=== PATIENT | female | born 1940 | race Caucasian/White ===

== ENCOUNTER 2016-06-26 06:38 | Day surgery (SDC) | payer MEDICARE, MEDICAID ==
[2016-06-26] MEDS ORDERED: Lactated Ringers 1,000 ML IV SCH (07:30)
[2016-06-26] MEDS ORDERED: Midazolam 1 MG/ML 2 ML SDV IV ONE (08:00)
[2016-06-26] MEDS ORDERED: Glucagon,Human Recombinant 1 MG Vial IV ONE (08:00)
[2016-06-26] MEDS ORDERED: Propofol 200 MG/20 ML SDV IV ONE (08:00)
[2016-06-26] MEDS ORDERED: Lidocaine 2% 100 MG/5 ML Syringe IVPUSH ONE (08:00)
--- NOTE | 2016-06-26 08:38 | PCM.OPNOTE ---
- General Post-Op/Procedure Note Date of Surgery/Procedure: 06/26/16 Operative Procedure(s): Colonoscopy Findings: Diverticulosis Pre Op Diagnosis: Hx Polyps Post-Op Diagnosis: Same Anesthesia Technique: MAC Primary Surgeon: Tim Davila Complications: None Condition: Good
--- NOTE | 2016-06-26 08:41 | PCM.HP ---
H&P History of Present Illness - General Date of Service: 06/26/16 (Seen prior to procedure) Admit Problem/Dx: Admission Diagnosis/Problem Admission Diagnosis/Problem Colonoscopy Source of Information: Patient, Old records History Limitations: Reports: No limitations - Related Data Allergies/Adverse Reactions: Allergies Allergy/AdvReac Type Severity Reaction Status Date / Time meperidine [From Demerol] AdvReac NAUSEA,VOMI Verified 06/26/16 07:31 TING,DIARRH EA CONTRAST DYE Allergy Intermediate Hives Uncoded 06/26/16 07:27 Home Medications: Home Meds Diltiazem [Cardizem] 90 mg PO BID 06/12/13 [History] Lisinopril/Hydrochlorothiazide [Zestoretic 20-12.5 mg Tablet] 10 - 12.5 mg PO BID 06/12/13 [History] Multivitamin [Multi-Vitamin Daily] 1 each PO DAILY 06/12/13 [History] Simvastatin [Zocor] 30 mg PO DAILY 06/12/13 [History] Tacrolimus [Prograf] 0.5 mg PO BID 06/12/13 [History] predniSONE 5 mg PO DAILY 06/12/13 [History] Mycophenolate Mofetil [Cellcept] 1,000 mg PO BID 06/15/13 [History] Acetaminophen/Diphenhydramine [Tylenol Pm Ex-Strength Caplet] 25 - 500 mg PO BEDTIME 06/25/16 [History] Aspirin [Lo-Dose Aspirin EC] 81 mg PO BID 06/25/16 [History] Cholecalciferol (Vitamin D3) [Vitamin D3] 2,000 unit PO DAILY 06/25/16 [History] Fenofibrate Nanocrystallized [Fenofibrate] 145 mg PO DAILY 06/25/16 [History] Sulfamethoxazole/Trimethoprim [Septra] 80 - 400 mg PO DAILY 06/25/16 [History] Past Medical History Cardiovascular History: Reports: Afib Gastrointestinal History: Reports: Chronic constipation, Colon polyp Genitourinary History: Reports: Renal disease, Other (see below) Other Genitourinary History: BILAT KIDNEY TRANSPLANT Musculoskeletal History: Reports: Osteoarthritis 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 Exam - Exam Exam: See Below - Vital Signs Vital Signs: Last Vital Signs Temp 97.8 F 06/26/16 07:42 Pulse 64 06/26/16 07:42 Resp 14 06/26/16 07:42 BP 132/64 06/26/16 07:42 Pulse Ox 96 06/26/16 07:42 Weight: 87.09 kg - Exam General: alert, oriented Lungs: Clear to auscultation, Normal respiratory effort Cardiovascular: regular rate, regular rhythm Abdomen: soft. No: tenderness, mass *Q Meaningful Use (ADM) - VTE *Q VTE Criteria *Q: - Stroke *Q Stroke Criteria *Q: - AMI *Q AMI Criteria *Q: Problem List Initiated/Reviewed/Updated: Yes Orders Last 24hrs: Active Orders 24 hr Category Date Time Status Patient Status [ADT] Routine ADT 06/26/16 06:45 Ordered Patient to Empty Bladder [RC] ASDIRECTED Care 06/26/16 07:00 Active Verify Patient Consent Obtain [RC] ASDIRECTED Care 06/26/16 07:30 Active Nothing Per Oral Diet [DIET] Diet 06/25/16 Dinner Ordered Lactated Ringers [Ringers, Lactated] 1,000 ml Med 06/26/16 07:30 Active IV ASDIRECTED Peripheral IV Insertion Adult [OM.PC] Routine Oth 06/26/16 07:30 Ordered Resuscitation Status Routine Resus Stat 06/25/16 10:23 Ordered Medication Orders Lactated Ringer's (Ringers, Lactated) 1,000 mls @ 125 mls/hr IV ASDIRECTED PEGGY Last Admin: 06/26/16 07:31 Dose: 125 mls/hr Assessment/Plan Comment:: A) Hx Colon Polyps P) OK toproceed with colonoscopy; risks and complications reviewed, consent obtained
[2016-06-26 11:07] VITALS: BP 123/54
--- NOTE | 2016-06-26 15:17 | OR ---
DATE OF OPERATION: 06/26/2016 SURGEON: Tim Davila MD PREOPERATIVE DIAGNOSIS: History of colon polyps. POSTOPERATIVE DIAGNOSIS: Normal colonoscopy. PROCEDURE PERFORMED: Colonoscopy. ANESTHESIA: IV sedation. PROCEDURE IN DETAIL: The patient was brought to the procedure room, where she was placed on her left side and IV sedation administered. Digital rectal exam was performed which was normal. The colonoscope was inserted and advanced with moderate difficulty through a tortuous colon with multiple diverticula throughout. They were most numerous in the sigmoid colon region. I was able to reach the cecum, which was verified by visualizing the appendiceal lumen and ileocecal valve. The prep was good and surfaces were well visualized. Upon withdrawing the scope, the ascending transverse and descending colon had scattered diverticula. The sigmoid colon had multiple diverticula. Rectum was normal and retroflexion was normal. Air was removed, and the scope withdrawn. The patient tolerated the procedure well and returned to recovery in stable condition. Recommend routine colon screening in five years. /[id number] JACOB/RENALDO
== END 2016-06-26 09:55 | disposition home or self-care (01) ==
LOC: FB.SDS 06:38
PROVIDERS: ATTEND Surgery
DX: Z12.11 Encounter for screening for malignant neoplasm of colon (principal); K57.30 Diverticulosis of large intestine without perforation or abscess without bleeding; Q43.8 Other specified congenital malformations of intestine; Z88.8 Allergy status to other drugs, medicaments and biological substances; Z91.041 Radiographic dye allergy status; Z79.899 Other long term (current) drug therapy; Z79.82 Long term (current) use of aspirin; Z94.0 Kidney transplant status; N28.9 Disorder of kidney and ureter, unspecified; Z87.891 Personal history of nicotine dependence
CPT/HCPCS: 00902; 82962; G0105; J1610; J2250; J2704; J7120

== ENCOUNTER 2017-12-09 01:29 | Inpatient (IN) | payer MEDICARE, MEDICAID ==
--- NOTE | 2017-12-09 01:47 | EDM.PDOC ---
ED HPI GENERAL MEDICAL PROBLEM - General Chief Complaint: Lower Extremity Injury/Pain Stated Complaint: RT HIP PAIN Time Seen by Provider: 12/09/17 01:46 Source of Information: Reports: Patient History Limitations: Reports: No Limitations - History of Present Illness INITIAL COMMENTS - FREE TEXT/NARRATIVE: Josemanuel @2300 12/08/17, complains of right hip pain, unable to bear weight on RLE. Onset: Today Onset Date: 12/08/17 Onset Time: 23:00 Location: Reports: Lower Extremity, Right Quality: Reports: Dull Severity: Moderate - Related Data Allergies Allergy/AdvReac Type Severity Reaction Status Date / Time meperidine [From Demerol] AdvReac NAUSEA,VOMI Verified 12/09/17 02:10 TING,DIARRH EA CONTRAST DYE Allergy Intermediate Hives Uncoded 06/26/16 07:27 Home Meds: Home Meds Diltiazem [Cardizem] 90 mg PO BID 06/12/13 [History] Lisinopril/Hydrochlorothiazide [Zestoretic 20-12.5 mg Tablet] 10 - 12.5 mg PO BID 06/12/13 [History] Multivitamin [Multi-Vitamin Daily] 1 each PO DAILY 06/12/13 [History] Tacrolimus [Prograf] 0.5 mg PO BID 06/12/13 [History] predniSONE 5 mg PO DAILY 06/12/13 [History] Mycophenolate Mofetil [Cellcept] 1,000 mg PO BID 06/15/13 [History] Aspirin [Lo-Dose Aspirin EC] 81 mg PO BID 06/25/16 [History] Cholecalciferol (Vitamin D3) [Vitamin D3] 2,000 unit PO DAILY 06/25/16 [History] Fenofibrate Nanocrystallized [Fenofibrate] 145 mg PO DAILY 06/25/16 [History] Sulfamethoxazole/Trimethoprim [Septra] 80 - 400 mg PO DAILY 06/25/16 [History] Past Medical History Cardiovascular History: Reports: Afib (paroxysmal), Hypertension. Denies: CAD, [place] Gastrointestinal History: Reports: Chronic Constipation, Colon Polyp Genitourinary History: Reports: Renal Disease (Polycystic Kidney Disease), Other (See Below) Other Genitourinary History: BILAT KIDNEY TRANSPLANT Musculoskeletal History: Reports: Osteoarthritis Immunologic History: Reports: Solid Organ Transplant Oncologic (Cancer) History: Reports: Other (See Below) Other Oncologic History: SKIN - Past Surgical History Other Female Surgeries/Procedures: KIDNEY TRANSPLANT 17 YRS AGO Musculoskeletal Surgical History: Reports: Other (See Below) (left hip fracture ORIF) Social & Family History - Tobacco Use Smoking Status *Q: Former Smoker - Caffeine Use Caffeine Use: Reports: None - Alcohol Use Alcohol Use History: Yes Alcohol Use Frequency: Rarely Review of Systems - Review of Systems Review Of Systems: ROS reveals no pertinent complaints other than HPI. ED EXAM, GENERAL - Physical Exam Exam: See Below Exam Limited By: No Limitations General Appearance: Alert, WD/WN, No Apparent Distress Ears: Normal External Exam Nose: Normal Inspection Throat/Mouth: No Airway Compromise Head: Atraumatic, Normocephalic Neck: Full Range of Motion Respiratory/Chest: No Respiratory Distress, Lungs Clear, Normal Breath Sounds Cardiovascular: Regular Rate, Rhythm, No Murmur Extremities: Other (Moderate right hip tenderness, no rotation or shortening, not able to bear weight on RLE) Neurological: Alert, No Motor/Sensory Deficits Psychiatric: Normal Affect, Normal Mood Skin Exam: Warm, Dry, Intact Course - Orders/Labs/Meds Orders: Active Orders 24 hr Category Date Time Status EKG Documentation Completion [RC] ASDIRECTED Care 12/09/17 02:48 Active Gupta Catheter Insertion [Insert Urinary Catheter] [OM. Care 12/09/17 03:00 Ordered PC] Q24H Urinary Catheter Assessment [RC] QSHIFT Care 12/09/17 02:48 Active Hip Min 2V or 3V w Pelvis Rt [CR] Stat Exams 12/09/17 01:30 Taken Pelvis wo Cont [CT] Stat Exams 12/09/17 02:05 Taken Sodium Chloride 0.9% [Saline Flush] Med 12/09/17 01:32 Active 10 ml FLUSH ASDIRECTED PRN Saline Lock Insert [OM.PC] Routine Oth 12/09/17 01:32 Ordered EKG 12 Lead [EK] Stat Ther 12/09/17 02:47 Ordered Medication Orders Sodium Chloride (Saline Flush) 10 ml FLUSH ASDIRECTED PRN PRN Reason: Keep Vein Open Last Admin: 12/09/17 02:38 Dose: 10 ml Labs: Laboratory Tests 12/09/17 12/09/17 12/09/17 Range/Units 02:30 02:30 02:30 WBC 9.7 (4.5-12.0) X10-3/uL RBC 3.82 (3.23-5.20) x10(6)uL Hgb 11.6 (11.5-15.5) g/dL Hct 35.1 (30.0-51.3) % MCV 91.9 (80-96) fL MCH 30.3 (27.7-33.6) pg MCHC 33.0 (32.2-35.4) g/dL RDW 13.8 (11.5-15.5) % Plt Count 152 (125-369) X10(3)uL MPV 9.4 (7.4-10.4) fL Add Manual Diff Yes Neutrophils % (Manual) 88 H (46-82) % Lymphocytes % (Manual) 7 L (13-37) % Monocytes % (Manual) 5 (4-12) % PT 11.4 H (8.7-11.1) INR 1.18 H (0.89-1.13) Sodium 141 (135-145) mmol/L Potassium 4.0 (3.5-5.3) mmol/L Chloride 104 (100-110) mmol/L Carbon Dioxide 29 (21-32) mmol/L BUN 43 H (7-18) mg/dL Creatinine 1.7 H (0.55-1.02) mg/dL Est Cr Clr Drug Dosing TNP Estimated GFR (MDRD) 29 L (>60) BUN/Creatinine Ratio 25.3 H (9-20) Glucose 117 H (80-116) mg/dL Calcium 9.6 (8.6-10.2) mg/dL Meds: Medications Generic Name Dose Route Start Last Admin Trade Name Freq PRN Reason Stop Dose Admin Sodium Chloride 10 ml 12/09/17 01:32 12/09/17 02:38 Saline Flush FLUSH 10 ml ASDIRECTED PRN Administration Keep Vein Open Discontinued Medications Generic Name Dose Route Start Last Admin Trade Name Freq PRN Reason Stop Dose Admin Morphine Sulfate 2 mg 12/09/17 01:52 12/09/17 02:54 Morphine IVPUSH 12/09/17 01:53 2 mg ONETIME ONE Administration - Radiology Interpretation Free Text/Narrative:: Right Hip XR: No acute osseous abnormality. Pelvis CT w/o contrast: Possible cortical fracture medial right femoral neck. - Re-Assessments/Exams Free Text/Narrative Re-Assessment/Exam: 12/09/17 03:[address] Edward, advised patient be [facility], fracture likely given patient is non-weight bearing. Dr. Edward will perform ORIF. Departure - Departure Time of Disposition: 03:07 Disposition: Admitted As Inpatient 68 Condition: Fair Clinical Impression: Fracture of neck of femur, hip - Discharge Information *PRESCRIPTION DRUG MONITORING PROGRAM REVIEWED*: No *COPY OF PRESCRIPTION DRUG MONITORING REPORT IN PATIENT JASON: Not Applicable - My Orders Last 24 Hours: My Active Orders 12/09/17 01:30 Hip Min 2V or 3V w Pelvis Rt [CR] Stat 12/09/17 01:32 Sodium Chloride 0.9% [Saline Flush] 10 ml FLUSH ASDIRECTED PRN Saline Lock Insert [OM.PC] Routine 12/09/17 02:05 Pelvis wo Cont [CT] Stat 12/09/17 02:47 EKG 12 Lead [EK] Stat 12/09/17 02:48 EKG Documentation Completion [RC] ASDIRECTED Urinary Catheter Assessment [RC] QSHIFT 12/09/17 03:00 Gupta Catheter Insertion [Insert Urinary Catheter] [OM.PC] Q24H - Assessment/Plan Last 24 Hours: My Active Orders 12/09/17 01:30 Hip Min 2V or 3V w Pelvis Rt [CR] Stat 12/09/17 01:32 Sodium Chloride 0.9% [Saline Flush] 10 ml FLUSH ASDIRECTED PRN Saline Lock Insert [OM.PC] Routine 12/09/17 02:05 Pelvis wo Cont [CT] Stat 12/09/17 02:47 EKG 12 Lead [EK] Stat 12/09/17 02:48 EKG Documentation Completion [RC] ASDIRECTED Urinary Catheter Assessment [RC] QSHIFT 12/09/17 03:00 Gupta Catheter Insertion [Insert Urinary Catheter] [OM.PC] Q24H
[2017-12-09] MEDS ORDERED: Morphine 2 MG/ML Syringe IVPUSH ONE (01:52)
[2017-12-09] MEDS: Sodium Chloride 0.9% 10 ML Syringe FLUSH PRN ×2 (02:38→14:04)
[2017-12-09] MEDS: D5 1/2 NS w/ 20 mEq/L KCl 1,000 ML IV SCH ×2 (04:30→18:44)
[2017-12-09] MEDS: Morphine 2 MG/ML Syringe IVPUSH PRN ×2 (05:40→09:52)
--- NOTE | 2017-12-09 08:02 | PCM.HP ---
H&P History of Present Illness - General Date of Service: 12/09/17 Admit Problem/Dx: Admission Diagnosis/Problem Admission Diagnosis/Problem Hip fracture requiring operative repair Source of Information: Patient History Limitations: Reports: No Limitations - History of Present Illness Initial Comments - Free Text/Narative: 87-year-old female patient was taking care of her friend's elderly mother. She had socks on and slipped on the would. There is a sunken living room and she had a right hip on the step. She said she was able to get up with assist and use crutches. Later the ambulance called and a sister downstairs and she came into the ER with her . She was diagnosed the right hip fracture. CT of the pelvis did not show fracture. Patient has right hip pain. She is nothing by mouth currently. 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 She has history of a transplant. She has no chest pain, shortness of breath. She was a little phlegm in the morning when she wakes up which is normal for her. She denies fevers or chills. right side hip and thigh Pain Score (Numeric/FACES): 7 - Related Data Allergies/Adverse Reactions: Allergies Allergy/AdvReac Type Severity Reaction Status Date / Time meperidine [From Demerol] AdvReac NAUSEA,VOMI Verified 12/09/17 02:10 TING,DIARRH EA CONTRAST DYE Allergy Intermediate Hives Uncoded 06/26/16 07:27 Home Medications: Home Meds Diltiazem [Cardizem] 90 mg PO BID 06/12/13 [History] Lisinopril/Hydrochlorothiazide [Zestoretic 20-12.5 mg Tablet] 10 - 12.5 mg PO BID 06/12/13 [History] Multivitamin [Multi-Vitamin Daily] 1 each PO DAILY 06/12/13 [History] Tacrolimus [Prograf] 0.5 mg PO BID 06/12/13 [History] predniSONE 5 mg PO DAILY 06/12/13 [History] Mycophenolate Mofetil [Cellcept] 1,000 mg PO BID 06/15/13 [History] Aspirin [Lo-Dose Aspirin EC] 81 mg PO BID 06/25/16 [History] Cholecalciferol (Vitamin D3) [Vitamin D3] 2,000 unit PO DAILY 06/25/16 [History] Fenofibrate Nanocrystallized [Fenofibrate] 145 mg PO DAILY 06/25/16 [History] Sulfamethoxazole/Trimethoprim [Septra] 80 - 400 mg PO DAILY 06/25/16 [History] Past Medical History HEENT History: Reports: Other (See Below) Other HEENT History: 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 Cardiovascular History: Reports: Afib, Hypertension Gastrointestinal History: Reports: Chronic Constipation, Colon Polyp Genitourinary History: Reports: Renal Disease, Other (See Below) Other Genitourinary History: BILAT KIDNEY TRANSPLANT (stated on adm that had kidney transplanton left not bilateral) 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 : Reports: Other (See Below) (Polycystic kidney disease.) Hematologic: Reports: Other (See Below) (Leukemia) - Tobacco Use Smoking Status *Q: Never Smoker Used Tobacco, but Quit: Yes Month/Year Tobacco Last Used: 480 Second Hand Smoke Exposure: No - Caffeine Use Caffeine Use: Reports: Coffee - Recreational Drug Use Recreational Drug Use: No H&P Review of Systems - Review of Systems: Review Of Systems: See Below General: Reports: No Symptoms HEENT: Reports: No Symptoms Pulmonary: Reports: No Symptoms Cardiovascular: Reports: No Symptoms Gastrointestinal: Reports: No Symptoms Genitourinary: Reports: No Symptoms Musculoskeletal: Reports: Joint Pain (Right hip) Skin: Reports: No Symptoms Psychiatric: Reports: No Symptoms Neurological: Reports: No Symptoms Hematologic/Lymphatic: Reports: No Symptoms Immunologic: Reports: No Symptoms Exam - Exam Exam: See Below - Vital Signs Vital Signs: Last Vital Signs Temp 98.6 F 12/09/17 03:46 Pulse 84 12/09/17 03:46 Resp 18 12/09/17 03:46 BP 145/61 H 12/09/17 03:46 Pulse Ox 93 L 12/09/17 03:46 Weight: 162 lb 11.2 oz - Exam General: Alert, Oriented, Cooperative HEENT: Hearing Intact, Normal Nasal Septum, Posterior Pharynx Clear, TMs Clear, Other (Artificial eye left eye) Neck: Supple, Trachea Midline Lungs: Clear to Auscultation, Normal Respiratory Effort. No: Crackles, Rales, Rhonchi Cardiovascular: Regular Rate, Regular Rhythm. No: Irregular Rhythm, Systolic Murmur, Diastolic Murmur GI/Abdominal Exam: Normal Bowel Sounds, Soft, Non-Tender, No Organomegaly. No: No Distention Back Exam: Normal Inspection Extremities: Other (Right hip with pain on palpation.) Skin: Warm, Dry, Intact Neurological: Normal Speech, Normal Tone Neuro Extensive - Mental Status: Alert, Oriented x3, Normal Mood/Affect, Normal Cognition Neuro Extensive - Motor, Sensory, Reflexes: No: Normal Gait Psychiatric: Alert, Normal Affect, Normal Mood - Patient Data Lab Results Last 24 hrs: Laboratory Results - last 24 hr 12/09/17 12/09/17 12/09/17 Range/Units 02:30 02:30 02:30 WBC 9.7 (4.5-12.0) X10-3/uL RBC 3.82 (3.23-5.20) x10(6)uL Hgb 11.6 (11.5-15.5) g/dL Hct 35.1 (30.0-51.3) % MCV 91.9 (80-96) fL MCH 30.3 (27.7-33.6) pg MCHC 33.0 (32.2-35.4) g/dL RDW 13.8 (11.5-15.5) % Plt Count 152 (125-369) X10(3)uL MPV 9.4 (7.4-10.4) fL Add Manual Diff Yes Neutrophils % (Manual) 88 H (46-82) % Lymphocytes % (Manual) 7 L (13-37) % Monocytes % (Manual) 5 (4-12) % PT 11.4 H (8.7-11.1) INR 1.18 H (0.89-1.13) Sodium 141 (135-145) mmol/L Potassium 4.0 (3.5-5.3) mmol/L Chloride 104 (100-110) mmol/L Carbon Dioxide 29 (21-32) mmol/L BUN 43 H (7-18) mg/dL Creatinine 1.7 H (0.55-1.02) mg/dL Est Cr Clr Drug Dosing TNP Estimated GFR (MDRD) 29 L (>60) BUN/Creatinine Ratio 25.3 H (9-20) Glucose 117 H (80-116) mg/dL Calcium 9.6 (8.6-10.2) mg/dL Result Diagrams: 12/09/17 02:30 12/09/17 02:30 - Problem List (1) History of kidney transplant Status: Acute Current Visit: Yes (2) Chronic kidney disease SNOMED Code(s): 488657713 ICD Code: N18.9 - CHRONIC KIDNEY DISEASE, UNSPECIFIED Status: Acute Current Visit: Yes (3) Hypertension SNOMED Code(s): 51820855 ICD Code: I10 - ESSENTIAL (PRIMARY) HYPERTENSION Status: Acute Current Visit: Yes (4) Chronic steroid use SNOMED Code(s): 041687705 ICD Code: CDA1822 - Status: Acute Current Visit: Yes (5) Palliative care status SNOMED Code(s): 252311372 ICD Code: Z51.5 - ENCOUNTER FOR PALLIATIVE CARE Status: Acute Current Visit: Yes (6) Fracture of neck of femur, hip SNOMED Code(s): 0423309 ICD Code: S72.009A - FRACTURE OF UNSP PART OF NECK OF UNSP FEMUR, INIT Status: Acute Current Visit: Yes Problem List Initiated/Reviewed/Updated: Yes Orders Last 24hrs: Active Orders 24 hr Category Date Time Status Patient Status [ADT] Routine ADT 12/09/17 03:09 Active Antiembolic Devices [RC] .Routine Care 12/09/17 03:10 Active Bedrest [RC] ASDIRECTED Care 12/09/17 03:13 Active EKG Documentation Completion [RC] ASDIRECTED Care 12/09/17 02:48 Active Gupta Catheter Insertion [Insert Urinary Catheter] [OM. Care 12/09/17 03:00 Ordered PC] Q24H Height and Weight [RC] DAILY Care 12/09/17 03:09 Active Intake and Output [RC] QSHIFT Care 12/09/17 03:11 Active Notify Provider Vital Signs [RC] ASDIRECTED Care 12/09/17 03:12 Active Pulse Oximetry [RC] PRN Care 12/09/17 03:09 Active Urinary Catheter Assessment [RC] QSIAFT Care 12/09/17 02:48 Active VTE/DVT Education [RC] Click to Edit Care 12/09/17 03:10 Active Vital Signs [RC] QSHIFT Care 12/09/17 03:09 Active Nothing per Oral Now Diet [DIET] Diet 12/09/17 Breakfast Active Hip Min 2V or 3V w Pelvis Rt [CR] Stat Exams 12/09/17 01:30 Taken Pelvis wo Cont [CT] Stat Exams 12/09/17 02:05 Taken D5 1/2 NS w/ 20 mEq/L KCl 1,000 ml Med 12/09/17 03:15 Active IV ASDIRECTED Morphine Med 12/09/17 03:16 Active 2 mg IVPUSH Q4H PRN Ondansetron [Zofran] Med 12/09/17 03:16 Active 4 mg IVPUSH Q8H PRN Sodium Chloride 0.9% [Saline Flush] Med 12/09/17 01:32 Active 10 ml FLUSH ASDIRECTED PRN DVT/VTE Prophylaxis Reflex [OM.PC] Per Unit Routine Oth 12/09/17 03:09 Ordered Saline Lock Insert [OM.PC] Routine Oth 12/09/17 01:32 Ordered Resuscitation Status Routine Resus Stat 12/09/17 03:09 Ordered EKG 12 Lead [EK] Stat Ther 12/09/17 02:47 Ordered Medication Orders Potassium Chloride/Dextrose/Sod Cl (D5 1/2 Ns W/ 20 Meq/L Kcl) 1,000 mls @ 100 mls/hr IV ASDIRECTED PEGGY Last Admin: 12/09/17 04:30 Dose: 100 mls/hr Morphine Sulfate (Morphine) 2 mg IVPUSH Q4H PRN PRN Reason: Pain Last Admin: 12/09/17 05:40 Dose: 2 mg Ondansetron HCl (Zofran) 4 mg IVPUSH Q8H PRN PRN Reason: Nausea/Vomiting Sodium Chloride (Saline Flush) 10 ml FLUSH ASDIRECTED PRN PRN Reason: Keep Vein Open Last Admin: 12/09/17 02:38 Dose: 10 ml Assessment/Plan Comment:: 1 admit to the floor for pain control. 2. Nothing by mouth. 3.Find out when Surgery is so hopefully we give her current medications with sips per 4. EKG reviewed shows some ST depression in inferior and lateral leads. 5. Consider steroid burst before surgery since she is on chronic prednisone. 6. Dr. Edward is already been consulted and will see her. 7. Okay for surgery.
[2017-12-09] MEDS: Mycophenolate Mofetil 250 MG Cap PO SCH ×2 (10:03→21:53)
[2017-12-09] MEDS: predniSONE 5 MG Tab PO SCH (10:04)
[2017-12-09] MEDS: Sulfamethoxazole/Trimethoprim 400-80 MG Tab PO SCH (10:04)
[2017-12-09] MEDS: Tacrolimus 0.5 MG Cap PO SCH ×2 (10:04→22:04)
--- NOTE | 2017-12-09 10:29 | PCM.CONS ---
H&P History of Present Illness - General Date of Service: 12/09/17 Admit Problem/Dx: Admission Diagnosis/Problem Admission Diagnosis/Problem Hip fracture requiring operative repair Source of Information: Patient History Limitations: Reports: No Limitations - History of Present Illness Onset of Symptoms: Reports: Sudden Duration of Symptoms: Reports: Hour(s): Location: Reports: Lower Extremity, Right Quality: Reports: Sharp, Throbbing Severity: Moderate Improves with: Reports: Immobilization Worsens with: Reports: Movement Associated Symptoms: Reports: No Other Symptoms right side hip and thigh Pain Score (Numeric/FACES): 7 - Related Data Allergies/Adverse Reactions: Allergies Allergy/AdvReac Type Severity Reaction Status Date / Time meperidine [From Demerol] AdvReac NAUSEA,VOMI Verified 12/09/17 02:10 TING,DIARRH EA CONTRAST DYE Allergy Intermediate Hives Uncoded 06/26/16 07:27 Home Medications: Home Meds Diltiazem [Cardizem] 90 mg PO BID 06/12/13 [History] Lisinopril/Hydrochlorothiazide [Zestoretic 20-12.5 mg Tablet] 1 tab PO BID 06/12 [History] Multivitamin [Multi-Vitamin Daily] 1 each PO DAILY 06/12/13 [History] Tacrolimus [Prograf] 0.5 mg PO BID 06/12/13 [History] predniSONE 5 mg PO DAILY 06/12/13 [History] Mycophenolate Mofetil [Cellcept] 1,000 mg PO BID 06/15/13 [History] Aspirin [Lo-Dose Aspirin EC] 81 mg PO BID 06/25/16 [History] Cholecalciferol (Vitamin D3) [Vitamin D3] 2,000 unit PO DAILY 06/25/16 [History] Fenofibrate Nanocrystallized [Fenofibrate] 145 mg PO DAILY 06/25/16 [History] Sulfamethoxazole/Trimethoprim [Septra] 1 tab PO DAILY 06/25/16 [History] Past Medical History HEENT History: Reports: Other (See Below) Other HEENT History: 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 Cardiovascular History: Reports: Afib, Hypertension Gastrointestinal History: Reports: Chronic Constipation, Colon Polyp Genitourinary History: Reports: Renal Disease, Other (See Below) Other Genitourinary History: BILAT KIDNEY TRANSPLANT (stated on adm that had kidney transplanton left not bilateral) 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 : Reports: Other (See Below) (Polycystic kidney disease.) Hematologic: Reports: Other (See Below) (Leukemia) - Tobacco Use Smoking Status *Q: Never Smoker Used Tobacco, but Quit: Yes Month/Year Tobacco Last Used: 480 Second Hand Smoke Exposure: No - Caffeine Use Caffeine Use: Reports: Coffee - Recreational Drug Use Recreational Drug Use: No H&P Review of Systems - Review of Systems: Review Of Systems: See Below General: Reports: No Symptoms HEENT: Reports: No Symptoms Pulmonary: Reports: No Symptoms Cardiovascular: Reports: No Symptoms Gastrointestinal: Reports: No Symptoms Genitourinary: Reports: No Symptoms Musculoskeletal: Reports: Leg Pain, Joint Pain Skin: Reports: No Symptoms Psychiatric: Reports: No Symptoms Neurological: Reports: No Symptoms Hematologic/Lymphatic: Reports: No Symptoms Immunologic: Reports: No Symptoms Exam - Exam Exam: See Below - Vital Signs Vital Signs: Last Vital Signs Temp 99.0 F 12/09/17 08:05 Pulse 87 12/09/17 08:05 Resp 20 12/09/17 08:05 BP 127/57 L 12/09/17 08:05 Pulse Ox 93 L 12/09/17 08:05 Weight: 162 lb 11.2 oz - Exam General: Alert, Oriented HEENT: PERRLA, Conjunctiva Clear, EOMI, Hearing Intact, Mucosa Moist & [place], Pupils Equal, Pupils Reactive Neck: Supple, Trachea Midline Lungs: Normal Respiratory Effort GI/Abdominal Exam: No Distention Extremities: Leg Pain, Limited Range of Motion Peripheral Pulses: 2+: Dorsalis Pedis (R) Skin: Warm, Dry, Intact Neuro Extensive - Mental Status: Alert, Oriented x3, Normal Mood/Affect, Normal Cognition Psychiatric: Alert, Normal Affect, Normal Mood - Patient Data Lab Results Last 24 hrs: Laboratory Results - last 24 hr 12/09/17 12/09/17 12/09/17 Range/Units 02:30 02:30 02:30 WBC 9.7 (4.5-12.0) X10-3/uL RBC 3.82 (3.23-5.20) x10(6)uL Hgb 11.6 (11.5-15.5) g/dL Hct 35.1 (30.0-51.3) % MCV 91.9 (80-96) fL MCH 30.3 (27.7-33.6) pg MCHC 33.0 (32.2-35.4) g/dL RDW 13.8 (11.5-15.5) % Plt Count 152 (125-369) X10(3)uL MPV 9.4 (7.4-10.4) fL Add Manual Diff Yes Neutrophils % (Manual) 88 H (46-82) % Lymphocytes % (Manual) 7 L (13-37) % Monocytes % (Manual) 5 (4-12) % PT 11.4 H (8.7-11.1) INR 1.18 H (0.89-1.13) Sodium 141 (135-145) mmol/L Potassium 4.0 (3.5-5.3) mmol/L Chloride 104 (100-110) mmol/L Carbon Dioxide 29 (21-32) mmol/L BUN 43 H (7-18) mg/dL Creatinine 1.7 H (0.55-1.02) mg/dL Est Cr Clr Drug Dosing TNP Estimated GFR (MDRD) 29 L (>60) BUN/Creatinine Ratio 25.3 H (9-20) Glucose 117 H (80-116) mg/dL Calcium 9.6 (8.6-10.2) mg/dL Result Diagrams: 12/09/17 02:30 12/09/17 02:30 Consult PN Assessment/Plan POD#: 0 Procedures: Procedures ANESTH ANORECTAL SURGERY (06/26/16) COLONOSCOPY W/LESION REMOVAL (06/15/13) COLONOSCOPY W/LESION REMOVAL (06/15/13) DRAIN/INJ JOINT/BURSA W/O US (05/03/15) GLUCOSE BLOOD TEST (06/26/16) OFFICE/OUTPATIENT VISIT NEW (05/03/15) TISSUE EXAM BY PATHOLOGIST (06/15/13) X-RAY EXAM HIP UNI 2-3 VIEWS (05/03/15) X-RAY EXAM OF PELVIS (05/03/15) (1) Fracture of neck of femur, hip SNOMED Code(s): 7840120 Code(s): S72.009A - FRACTURE OF UNSP PART OF NECK OF UNSP FEMUR, INIT Current Visit: Yes Problem List Initiated/Reviewed/Updated: Yes My Orders Last 24 Hours: My Active Orders 12/09/17 09:21 Hip Min 1V Rt [CR] Routine Plan: Plan: 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 She had the same procedure done by Dr. Murray approximately 7 years ago. She states that she did well after that procedure and was walking on it the next day. She states that she's had increased pain this morning compared to when she was admitted. I did obtain another AP radiograph to confirm that the fracture was still valgus impacted and minimally displaced. Risks and benefits of the procedure were explained to the patient and informed consent was obtained. We will have her continue with her antirejection medications. Her Cardizem and lisinopril were held this morning per anesthesia request. Anesthesia has visited with the patient and will plan on doing a Duramorph spinal. We will plan on performing the procedure around 11:00 today.
[2017-12-09] MEDS ORDERED: Bupivacaine 0.75%/D5W 2 ML Amp ISPINAL ONE (10:38)
[2017-12-09] MEDS ORDERED: Ondansetron 4 MG/2 ML SDV IVPUSH ONE (10:38)
[2017-12-09] MEDS ORDERED: Ketamine 500 mg/10 ML MDV IV ONE (10:38)
[2017-12-09] MEDS ORDERED: Phenylephrine 1% 10 MG/ML SDV IV ONE (10:38)
[2017-12-09] MEDS ORDERED: Lactated Ringers 1,000 ML IV ONE (10:38)
[2017-12-09] MEDS ORDERED: Morphine PF 10 MG/10 ML SDV ONE (10:38)
[2017-12-09] MEDS ORDERED: ePHEDrine 50 MG/ML SDV IV ONE (10:38)
[2017-12-09] MEDS ORDERED: Propofol 200 MG/20 ML SDV IV ONE (10:38)
[2017-12-09] MEDS ORDERED: ceFAZolin 1 GM Vial IV ONE (10:38)
[2017-12-09] MEDS ORDERED: Acetaminophen/HYDROcodone 325-5 MG Tab PO PRN (12:14)
[2017-12-09] MEDS ORDERED: Naloxone 0.4 MG/ML SDV IVPUSH PRN (14:27)
[2017-12-09] MEDS ORDERED: Morphine 2 MG/ML Syringe IVPUSH PRN (14:27)
[2017-12-09] MEDS ORDERED: diphenhydrAMINE 50 MG/ML SDV IVPUSH PRN (14:27)
[2017-12-09] MEDS ORDERED: Naloxone 0.4 MG in Sodium Chloride 0.9% 100 ML IV PRN (14:27)
[2017-12-09] MEDS ORDERED: hydrOXYzine HCl 50 MG/ML SDV IM PRN (14:27)
[2017-12-09] MEDS ORDERED: Promethazine 25 MG/ML SDV IV PRN ×2 (14:27)
[2017-12-09] MEDS ORDERED: Nalbuphine 10 MG/1 ML Vial SUBCUT PRN (14:28)
--- NOTE | 2017-12-09 14:32 | OR ---
DATE OF OPERATION: 12/09/2017 SURGEON: Juan Edward DO PREOPERATIVE DIAGNOSIS: Right femoral neck fracture, closed. POSTOPERATIVE DIAGNOSIS: Right femoral neck fracture, closed. PROCEDURE PERFORMED: Right femoral neck percutaneous pinning. ANESTHESIA: Spinal plus conscious sedation. FLUIDS: Lactated Ringer's solution. ESTIMATED BLOOD LOSS: 25 mL. COMPLICATIONS: None. SPECIMEN: None. DISCHARGE DISPOSITION: Stable to PACU. HISTORY AND INDICATIONS FOR THE PROCEDURE: The patient was admitted to the hospitalist service last night. She had fallen around 2300 hours while taking care of one of her friend's mother's. She went home and then was later taken to the emergency department where she was found to have a valgus impacted minimally displaced femoral neck fracture. She was admitted to the hospitalist service preoperative for the above-mentioned diagnosis. I visited with her this morning. Risks and benefits of the procedure explained to the patient and informed consent was obtained. PROCEDURE DETAILS: The patient was seen preoperatively in the hospital room where the site was marked. She was brought to the operative suite by Anesthesia staff where spinal plus conscious sedation was administered. Her left lower extremity was in a stirrup. Her right lower extremity was in traction boot under minimal traction. All extremities found to be well padded. The right lower extremity was then prepped and draped in a sterile manner. Time-out was called after the correct patient, correct procedure, the correct site and the antibiotics had been within appropriate time. I used sterilely draped fluoroscopy unit and used the K-wires to determine my entry point at the level added above the left trochanter. I then after marking the anterior port, I made an incision laterally and then dissected down through the iliotibial band and was able to feel the femur. I then placed my inferior cannulated wire and then did a lateral. This is a little bit anterior, so I readjusted it after I got this within a good distance of the femoral head cortex, I then used a parallel guide to place my anterior-superior and posterior-superior K-wires. I confirmed good placement on AP and lateral radiographs. I then drilled with a 6.0 bit through the outer cortex and then using power placed my three screws. I then hand tightened these. I then removed my K-wires and took final AP and lateral films, which showed all screws to be in good position without going through the femoral head cortex. I then copiously irrigated with Betadine infused irrigation and then closed with number #1 Stratafix skin rony, followed by Adaptic soaked in Betadine, 4x4s, and Medipore tape. The patient was then transferred to hospital bed and taken to the PACU in stable condition. /[id number] BS/GAYLAL
[2017-12-09] MEDS: traMADol 50 MG Tab PO PRN (17:25)
[2017-12-09] MEDS: ceFAZolin 2 GM in Premix Bag 1 BAG IV SCH (18:47)
[2017-12-09] MEDS: Ondansetron 4 MG/2 ML SDV IVPUSH PRN (19:36)
[2017-12-10] MEDS: traMADol 50 MG Tab PO PRN ×3 (02:10→21:31)
[2017-12-10] MEDS: ceFAZolin 2 GM in Premix Bag 1 BAG IV SCH ×2 (03:39→11:55)
[2017-12-10] MEDS: D5 1/2 NS w/ 20 mEq/L KCl 1,000 ML IV SCH ×2 (06:04→17:08)
--- NOTE | 2017-12-10 09:00 | PCM.PN ---
- General Info Date of Service: 12/10/17 Functional Status: Reports: Pain Controlled, Tolerating Diet - Review of Systems General: Reports: Fatigue, Appetite HEENT: Reports: No Symptoms Pulmonary: Reports: No Symptoms Cardiovascular: Reports: No Symptoms Gastrointestinal: Reports: Nausea Genitourinary: Reports: No Symptoms Musculoskeletal: Reports: Leg Pain Skin: Reports: No Symptoms Neurological: Reports: No Symptoms Psychiatric: Reports: No Symptoms - Patient Data Vitals - Most Recent: Last Vital Signs Temp 98.1 F 12/10/17 00:00 Pulse 81 12/10/17 00:00 Resp 16 12/10/17 00:00 BP 127/56 L 12/10/17 00:00 Pulse Ox 97 12/10/17 03:09 Weight - Most Recent: 162 lb 11.2 oz I&O - Last 24 Hours: Intake & Output 12/09/17 12/10/17 12/10/17 22:59 06:59 14:59 Intake Total 1317 768 Output Total 400 450 Balance 917 318 Med Orders - Current: Current Medications Hydrocodone Bitart/Acetaminophen (Brice 325-5 Mg) 1 tab PO Q3H PRN PRN Reason: MODERATE Pain Aspirin (Ecotrin) 325 mg PO DAILY [facility] Diphenhydramine HCl (Benadryl) 25 mg IVPUSH ASDIRECTED PRN PRN Reason: PRURITUS Stop: 12/10/17 11:00 Hydroxyzine HCl (Vistaril) 25 - 50 mg IM Q4H PRN PRN Reason: N/V Stop: 12/10/17 11:00 Potassium Chloride/Dextrose/Sod Cl (D5 1/2 Ns W/ 20 Meq/L Kcl) 1,000 mls @ 100 mls/hr IV ASDIRECTED [facility] Stop: 12/10/17 15:59 Last Admin: 12/10/17 06:04 Dose: 100 mls/hr Cefazolin Sodium/Dextrose 2 gm (/ Premix) 50 mls @ 100 mls/hr IV Q8H [facility] Stop: 12/10/17 11:29 Last Admin: 12/10/17 03:39 Dose: 100 mls/hr Potassium Chloride/Dextrose/Sod Cl (D5 1/2 Ns W/ 20 Meq/L Kcl) 1,000 mls @ 100 mls/hr IV Q10H [facility] Morphine Sulfate (Morphine) 2 mg IVPUSH Q1H PRN PRN Reason: BREAKTHRU PAIN Stop: 12/10/17 11:00 Last Admin: 12/10/17 03:40 Dose: 2 mg Mycophenolate Mofetil (Cellcept) 1,000 mg PO BID [facility] Last Admin: 12/09/17 21:53 Dose: 1,000 mg Nalbuphine HCl (Nubain) 10 mg SUBCUT Q6H PRN PRN Reason: PRURITUS Stop: 12/10/17 11:00 Naloxone HCl (Narcan) 0.1 mg IVPUSH ASDIRECTED PRN PRN Reason: RESPIRATORY STATUS Stop: 12/10/17 11:00 Ondansetron HCl (Zofran) 4 mg IVPUSH Q8H PRN PRN Reason: Nausea/Vomiting Last Admin: 12/09/17 19:36 Dose: 4 mg Prednisone (Prednisone) 5 mg PO DAILY [facility] Last Admin: 12/09/17 10:04 Dose: 5 mg Promethazine HCl (Phenergan) 6.25 mg IV Q4H PRN PRN Reason: N/V Stop: 12/10/17 11:00 Promethazine HCl (Phenergan) 12.5 mg IV Q4H PRN PRN Reason: N/V Stop: 12/10/17 11:00 Sodium Chloride (Saline Flush) 10 ml FLUSH ASDIRECTED PRN PRN Reason: Keep Vein Open Last Admin: 12/09/17 14:04 Dose: 10 ml Tacrolimus (Prograf) 0.5 mg PO BID [facility] Last Admin: 12/09/17 22:04 Dose: 0.5 mg Tramadol HCl (Ultram) 100 mg PO Q4H PRN PRN Reason: MILD Pain Last Admin: 12/10/17 02:10 Dose: 100 mg Trimethoprim/Sulfamethoxazole (Septra) 1 tab PO DAILY [facility] Last Admin: 12/09/17 10:04 Dose: 1 tab Discontinued Medications Naloxone HCl 0.4 mg/ Sodium (Chloride) 101 mls @ 25 mls/hr IV ASDIRECTED PRN PRN Reason: RESPIRATORY STATUS Morphine Sulfate (Morphine) 2 mg IVPUSH ONETIME ONE Stop: 12/09/17 01:53 Last Admin: 12/09/17 02:54 Dose: 2 mg Morphine Sulfate (Morphine) 2 mg IVPUSH Q4H PRN PRN Reason: Pain Last Admin: 12/09/17 09:52 Dose: 2 mg - Exam General: Alert, Oriented HEENT: Pupils Equal, Pupils Reactive, Mucous Membr. Moist/[place] Neck: Supple, Trachea Midline Lungs: Normal Respiratory Effort Extremities: Leg Pain Peripheral Pulses: 2+: Dorsalis Pedis (R) Skin: Warm, Dry, Intact Wound/Incisions: Healing Well, Dressing Dry and Intact, No Drainage Neurological: No New Focal Deficit Psy/Mental Status: Alert, Normal Affect, Normal Mood - Problem List & Annotations (1) Fracture of neck of femur, hip SNOMED Code(s): 8178332 Code(s): S72.009A - FRACTURE OF UNSP PART OF NECK OF UNSP FEMUR, INIT Status: Acute Current Visit: Yes - Problem List Review Problem List Initiated/Reviewed/Updated: Yes - My Orders Last 24 Hours: My Active Orders 12/09/17 09:21 Hip Min 1V Rt [CR] Routine 12/09/17 12:14 Ambulate [RC] ASDIRECTED Head of Bed Elevation [RC] CONTINUOUS Pneumonia Education [RC] UPON RT Incentive Spirometry [RC] Q1HWA Turn, Cough, Deep Breathe [RC] Q1HWA Up to Chair [RC] TIDMEALS OT Evaluation and Treatment [CONS] Routine PT Evaluation and Treatment [CONS] Routine Respiratory Care Assess and Treatment [CONS] Routine Acetaminophen/HYDROcodone [Brice 325-5 MG] 1 tab PO Q3H PRN traMADol [Ultram] 100 mg PO Q4H PRN Weight bearing status [OM.PC] Routine 12/09/17 12:15 C-ARM Less 1 Hr [CR] Routine Oral Care [OM.PC] BID 12/09/17 13:00 Oxygen Therapy Adult [Oxygen Therapy] [RC] ASDIRECTED 12/09/17 19:00 ceFAZolin [Ancef] 2 gm Premix Bag 1 bag IV Q8H 12/09/17 Dinner Clear Liquid Diet [DIET] 12/10/17 09:00 Aspirin [Ecotrin] 325 mg PO DAILY 12/10/17 12:15 Oral Care [OM.PC] BID 12/11/17 12:15 Oral Care [OM.PC] BID 12/12/17 12:15 Oral Care [OM.PC] BID 12/13/17 12:15 Oral Care [OM.PC] BID 12/14/17 12:15 Oral Care [OM.PC] BID 12/15/17 12:15 Oral Care [OM.PC] BID 12/16/17 12:15 Oral Care [OM.PC] BID 12/17/17 12:15 Oral Care [OM.PC] BID 12/18/17 12:15 Oral Care [OM.PC] BID - Plan Plan:: a: 77 yo female minimally displaced right valgus impacted femoral neck fracture p: wbat, pt/ot, pain control, advance diet, zofran prn, remove díaz when able to minimally ambulate
[2017-12-10] MEDS: Aspirin 325 MG Tab.EC PO SCH (09:02)
[2017-12-10] MEDS: Mycophenolate Mofetil 250 MG Cap PO SCH ×2 (09:02→21:27)
[2017-12-10] MEDS: Tacrolimus 0.5 MG Cap PO SCH ×2 (09:02→21:27)
[2017-12-10] MEDS: Sulfamethoxazole/Trimethoprim 400-80 MG Tab PO SCH (09:02)
[2017-12-10] MEDS: Ondansetron 4 MG/2 ML SDV IVPUSH PRN (09:03)
[2017-12-10] MEDS: predniSONE 5 MG Tab PO SCH (09:03)
[2017-12-10] MEDS: Sodium Chloride 0.9% 10 ML Syringe FLUSH PRN ×2 (10:45→11:53)
--- NOTE | 2017-12-10 11:53 | CR ---
INDICATION: Confirm still non-displaced subcapital femoral neck fracture. RIGHT HIP: A single frontal view of the right hip was obtained portable and again reveals fracture through the subcapital area with very minimal medial inferior offset of the distal fracture fragment, essentially unchanged from the previous study. MTDD
--- NOTE | 2017-12-10 11:54 | CR ---
INDICATION: Intraoperative for hip pinning guidance. C-ARM FLUOROSCOPY IN OR: 0.6 minutes fluoroscopy time was utilized in OR for placement of hip pins. Three images of the right hip obtained intraoperatively. Final study shows pins and fracture fragments in satisfactory position and alignment without a definite complicating process. [facility]
[2017-12-11] MEDS: traMADol 50 MG Tab PO PRN ×2 (02:10→06:17)
[2017-12-11] MEDS: Mycophenolate Mofetil 250 MG Cap PO SCH ×2 (10:38→20:38)
[2017-12-11] MEDS: predniSONE 5 MG Tab PO SCH (10:39)
[2017-12-11] MEDS: Sulfamethoxazole/Trimethoprim 400-80 MG Tab PO SCH (10:39)
[2017-12-11] MEDS: Aspirin 325 MG Tab.EC PO SCH (10:39)
[2017-12-11] MEDS: Tacrolimus 0.5 MG Cap PO SCH ×2 (10:39→20:38)
[2017-12-11] MEDS: Ondansetron 4 MG/2 ML SDV IVPUSH PRN (10:46)
[2017-12-11] MEDS: Diltiazem IR 30 MG Tab PO SCH ×2 (11:14→20:39)
[2017-12-11] MEDS: Fenofibrate Nanocrystallized 145 MG Tab PO SCH (11:15)
[2017-12-11] MEDS: Multivitamin Tab PO SCH (11:15)
[2017-12-11] MEDS: Cholecalciferol (Vitamin D3) 1,000 Unit Tab PO SCH (11:15)
[2017-12-11] MEDS: Hydrochlorothiazide/Lisinopril 12.5-20 MG Tab PO SCH ×2 (11:20→20:38)
[2017-12-11] MEDS: D5 1/2 NS w/ 20 mEq/L KCl 1,000 ML IV SCH (13:51)
--- NOTE | 2017-12-11 14:04 | PCM.PN ---
- General Info Date of Service: 12/11/17 Functional Status: Reports: Pain Controlled, Tolerating Diet, Ambulating - Review of Systems General: Reports: No Symptoms HEENT: Reports: No Symptoms Pulmonary: Reports: No Symptoms Cardiovascular: Reports: No Symptoms Gastrointestinal: Reports: No Symptoms Genitourinary: Reports: No Symptoms Musculoskeletal: Reports: Leg Pain, Joint Pain Skin: Reports: No Symptoms Neurological: Reports: No Symptoms Psychiatric: Reports: No Symptoms - Patient Data Vitals - Most Recent: Last Vital Signs Temp 98.0 F 12/11/17 08:05 Pulse 82 12/11/17 11:22 Resp 18 12/11/17 11:22 BP 137/60 12/11/17 11:22 Pulse Ox 96 12/11/17 11:22 Weight - Most Recent: 162 lb 11.2 oz I&O - Last 24 Hours: Intake & Output 12/10/17 12/11/17 12/11/17 22:59 06:59 14:59 Intake Total 610 600 120 Output Total 325 325 175 Balance 285 275 -55 Med Orders - Current: Current Medications Hydrocodone Bitart/Acetaminophen ([place] 325-5 Mg) 1 tab PO Q3H PRN PRN Reason: MODERATE Pain Aspirin (Ecotrin) 325 mg PO DAILY [facility] Last Admin: 12/11/17 10:39 Dose: 325 mg Cholecalciferol (Vitamin D3) 2,000 units PO DAILY [facility] Last Admin: 12/11/17 11:15 Dose: 2,000 units Diltiazem HCl (Cardizem) 90 mg PO BID [facility] Last Admin: 12/11/17 11:14 Dose: 90 mg Fenofibrate (Tricor) 145 mg PO DAILY [facility] Last Admin: 12/11/17 11:15 Dose: 145 mg Lisinopril/HCTZ (Lisinopril/Hctz 20-12.5 Mg) 1 tab PO BID [facility] Last Admin: 12/11/17 11:20 Dose: 1 tab Multivitamins/Minerals/Vitamin C (Tab-A-Tip) 1 tab PO DAILY [facility] Last Admin: 12/11/17 11:15 Dose: 1 tab Mycophenolate Mofetil (Cellcept) 1,000 mg PO BID [facility] Last Admin: 12/11/17 10:38 Dose: 1,000 mg Ondansetron HCl (Zofran) 4 mg IVPUSH Q8H PRN PRN Reason: Nausea/Vomiting Last Admin: 12/11/17 10:46 Dose: 4 mg Prednisone (Prednisone) 5 mg PO DAILY [facility] Last Admin: 12/11/17 10:39 Dose: 5 mg Senna/Docusate Sodium (Senna Plus) 1 tab PO BID [facility] Sodium Chloride (Saline Flush) 10 ml FLUSH ASDIRECTED PRN PRN Reason: Keep Vein Open Last Admin: 12/10/17 11:53 Dose: 10 ml Tacrolimus (Prograf) 0.5 mg PO BID [facility] Last Admin: 12/11/17 10:39 Dose: 0.5 mg Tramadol HCl (Ultram) 100 mg PO Q4H PRN PRN Reason: MILD Pain Last Admin: 12/11/17 06:17 Dose: 100 mg Trimethoprim/Sulfamethoxazole (Septra) 1 tab PO DAILY [facility] Last Admin: 12/11/17 10:39 Dose: 1 tab Discontinued Medications Aspirin (Halfprin) 81 mg PO BID [facility] Diphenhydramine HCl (Benadryl) 25 mg IVPUSH ASDIRECTED PRN PRN Reason: PRURITUS Stop: 12/10/17 11:00 Hydroxyzine HCl (Vistaril) 25 - 50 mg IM Q4H PRN PRN Reason: N/V Stop: 12/10/17 11:00 Potassium Chloride/Dextrose/Sod Cl (D5 1/2 Ns W/ 20 Meq/L Kcl) 1,000 mls @ 100 mls/hr IV ASDIRECTED [facility] Stop: 12/10/17 15:59 Last Admin: 12/10/17 06:04 Dose: 100 mls/hr Cefazolin Sodium/Dextrose 2 gm (/ Premix) 50 mls @ 100 mls/hr IV Q8H [facility] Stop: 12/10/17 11:29 Last Admin: 12/10/17 11:55 Dose: 100 mls/hr Naloxone HCl 0.4 mg/ Sodium (Chloride) 101 mls @ 25 mls/hr IV ASDIRECTED PRN PRN Reason: RESPIRATORY STATUS Potassium Chloride/Dextrose/Sod Cl (D5 1/2 Ns W/ 20 Meq/L Kcl) 1,000 mls @ 100 mls/hr IV Q10H [facility] Last Admin: 12/11/17 13:51 Dose: Not Given Morphine Sulfate (Morphine) 2 mg IVPUSH ONETIME ONE Stop: 12/09/17 01:53 Last Admin: 12/09/17 02:54 Dose: 2 mg Morphine Sulfate (Morphine) 2 mg IVPUSH Q4H PRN PRN Reason: Pain Last Admin: 12/09/17 09:52 Dose: 2 mg Morphine Sulfate (Morphine) 2 mg IVPUSH Q1H PRN PRN Reason: BREAKTHRU PAIN Stop: 12/10/17 11:00 Last Admin: 12/10/17 03:40 Dose: 2 mg Nalbuphine HCl (Nubain) 10 mg SUBCUT Q6H PRN PRN Reason: PRURITUS Stop: 12/10/17 11:00 Naloxone HCl (Narcan) 0.1 mg IVPUSH ASDIRECTED PRN PRN Reason: RESPIRATORY STATUS Stop: 12/10/17 11:00 Promethazine HCl (Phenergan) 6.25 mg IV Q4H PRN PRN Reason: N/V Stop: 12/10/17 11:00 Promethazine HCl (Phenergan) 12.5 mg IV Q4H PRN PRN Reason: N/V Stop: 12/10/17 11:00 - Exam General: Alert, Oriented, Cooperative, No Acute Distress, Mild Distress HEENT: Pupils Equal, Pupils Reactive, Mucous Membr. Moist/[place] Neck: Supple, Trachea Midline Lungs: Normal Respiratory Effort GI/Abdominal Exam: No Distention Extremities: Joint Swelling, Leg Pain, Limited Range of Motion Peripheral Pulses: 2+: Dorsalis Pedis (R) Skin: Warm, Dry, Intact Wound/Incisions: Dressing Dry and Intact, No Drainage Neurological: No New Focal Deficit Psy/Mental Status: Alert, Normal Affect, Normal Mood - Problem List & Annotations (1) Fracture of neck of femur, hip SNOMED Code(s): 4965702 Code(s): S72.009A - FRACTURE OF UNSP PART OF NECK OF UNSP FEMUR, INIT Status: Acute Current Visit: Yes - Problem List Review Problem List Initiated/Reviewed/Updated: Yes - My Orders Last 24 Hours: My Active Orders 12/10/17 Dinner Full Liquid Diet [DIET] 12/11/17 12:15 Oral Care [OM.PC] BID 12/12/17 12:15 Oral Care [OM.PC] BID 12/13/17 12:15 Oral Care [OM.PC] BID 12/14/17 12:15 Oral Care [OM.PC] BID 12/15/17 12:15 Oral Care [OM.PC] BID 12/16/17 12:15 Oral Care [OM.PC] BID 12/17/17 12:15 Oral Care [OM.PC] BID 12/18/17 12:15 Oral Care [OM.PC] BID - Plan Plan:: a: 77 yo female minimally displaced right valgus impacted femoral neck fracture s/p orif cannulated screws POD 2 p: wbat, pt/ot, pain control, advance diet, zofran prn, d/c to [facility] per hospitalist
[2017-12-11] MEDS: Acetaminophen 325 MG Tab PO PRN (17:00)
[2017-12-11] MEDS ORDERED: Tacrolimus 0.5 MG Cap PO SCH (21:00)
[2017-12-11] MEDS ORDERED: Mycophenolate Mofetil 250 MG Cap PO SCH (21:00)
[2017-12-11] MEDS ORDERED: Aspirin 81 MG Tab.EC PO SCH (21:00)
[2017-12-12] MEDS: Acetaminophen 325 MG Tab PO PRN ×3 (00:32→19:38)
[2017-12-12] MEDS: Diltiazem IR 30 MG Tab PO SCH ×2 (08:35→20:02)
[2017-12-12] MEDS: Mycophenolate Mofetil 250 MG Cap PO SCH ×2 (08:36→20:02)
[2017-12-12] MEDS: Aspirin 325 MG Tab.EC PO SCH (08:36)
[2017-12-12] MEDS: predniSONE 5 MG Tab PO SCH (08:37)
[2017-12-12] MEDS: Hydrochlorothiazide/Lisinopril 12.5-20 MG Tab PO SCH ×2 (08:37→20:03)
[2017-12-12] MEDS: Tacrolimus 0.5 MG Cap PO SCH ×2 (08:37→20:03)
[2017-12-12] MEDS: Sulfamethoxazole/Trimethoprim 400-80 MG Tab PO SCH (08:38)
[2017-12-12] MEDS: Multivitamin Tab PO SCH (08:38)
[2017-12-12] MEDS: Cholecalciferol (Vitamin D3) 1,000 Unit Tab PO SCH (08:39)
[2017-12-12] MEDS: Fenofibrate Nanocrystallized 145 MG Tab PO SCH (08:39)
[2017-12-12] MEDS ORDERED: predniSONE 5 MG Tab PO SCH (09:00)
[2017-12-12] MEDS ORDERED: Sulfamethoxazole/Trimethoprim 400-80 MG Tab PO SCH (09:00)
--- NOTE | 2017-12-12 16:56 | PCM.PN ---
- General Info Date of Service: 12/12/17 Subjective Update: Patient doing well, going out out on a pass. Functional Status: Reports: Pain Controlled - Review of Systems Pulmonary: Reports: No Symptoms Cardiovascular: Reports: No Symptoms Gastrointestinal: Reports: No Symptoms - Patient Data Vitals - Most Recent: Last Vital Signs Temp 97.9 F 12/12/17 16:00 Pulse 83 12/12/17 16:00 Resp 16 12/12/17 08:00 BP 137/69 12/12/17 16:00 Pulse Ox 90 L 12/12/17 16:00 Weight - Most Recent: 73.799 kg I&O - Last 24 Hours: Intake & Output 12/12/17 12/12/17 12/12/17 06:59 14:59 22:59 Intake Total 390 200 Output Total 500 250 Balance -110 -50 Med Orders - Current: Current Medications Acetaminophen (Tylenol) 650 mg PO Q4H PRN PRN Reason: Pain Last Admin: 12/12/17 13:45 Dose: 650 mg Hydrocodone Bitart/Acetaminophen (Belk 325-5 Mg) 1 tab PO Q3H PRN PRN Reason: MODERATE Pain Aspirin (Ecotrin) 325 mg PO DAILY [facility] Last Admin: 12/12/17 08:36 Dose: 325 mg Cholecalciferol (Vitamin D3) 2,000 units PO DAILY [facility] Last Admin: 12/12/17 08:39 Dose: 2,000 units Diltiazem HCl (Cardizem) 90 mg PO BID [facility] Last Admin: 12/12/17 08:35 Dose: 90 mg Fenofibrate (Tricor) 145 mg PO DAILY [facility] Last Admin: 12/12/17 08:39 Dose: 145 mg Lisinopril/HCTZ (Lisinopril/Hctz 20-12.5 Mg) 1 tab PO BID [facility] Last Admin: 12/12/17 08:37 Dose: 1 tab Multivitamins/Minerals/Vitamin C (Tab-A-Tip) 1 tab PO DAILY [facility] Last Admin: 12/12/17 08:38 Dose: 1 tab Mycophenolate Mofetil (Cellcept) 1,000 mg PO BID [facility] Last Admin: 12/12/17 08:36 Dose: 1,000 mg Ondansetron HCl (Zofran) 4 mg IVPUSH Q8H PRN PRN Reason: Nausea/Vomiting Last Admin: 12/11/17 10:46 Dose: 4 mg Prednisone (Prednisone) 5 mg PO DAILY [facility] Last Admin: 12/12/17 08:37 Dose: 5 mg Senna/Docusate Sodium (Senna Plus) 1 tab PO BID [facility] Last Admin: 12/12/17 08:38 Dose: 1 tab Sodium Chloride (Saline Flush) 10 ml FLUSH ASDIRECTED PRN PRN Reason: Keep Vein Open Last Admin: 12/10/17 11:53 Dose: 10 ml Tacrolimus (Prograf) 0.5 mg PO BID [facility] Last Admin: 12/12/17 08:37 Dose: 0.5 mg Tramadol HCl (Ultram) 100 mg PO Q4H PRN PRN Reason: MILD Pain Last Admin: 12/11/17 06:17 Dose: 100 mg Trimethoprim/Sulfamethoxazole (Septra) 1 tab PO DAILY [facility] Last Admin: 12/12/17 08:38 Dose: 1 tab Discontinued Medications Aspirin (Halfprin) 81 mg PO BID [facility] Diphenhydramine HCl (Benadryl) 25 mg IVPUSH ASDIRECTED PRN PRN Reason: PRURITUS Stop: 12/10/17 11:00 Hydroxyzine HCl (Vistaril) 25 - 50 mg IM Q4H PRN PRN Reason: N/V Stop: 12/10/17 11:00 Potassium Chloride/Dextrose/Sod Cl (D5 1/2 Ns W/ 20 Meq/L Kcl) 1,000 mls @ 100 mls/hr IV ASDIRECTED [facility] Stop: 12/10/17 15:59 Last Admin: 12/10/17 06:04 Dose: 100 mls/hr Cefazolin Sodium/Dextrose 2 gm (/ Premix) 50 mls @ 100 mls/hr IV Q8H [facility] Stop: 12/10/17 11:29 Last Admin: 12/10/17 11:55 Dose: 100 mls/hr Naloxone HCl 0.4 mg/ Sodium (Chloride) 101 mls @ 25 mls/hr IV ASDIRECTED PRN PRN Reason: RESPIRATORY STATUS Potassium Chloride/Dextrose/Sod Cl (D5 1/2 Ns W/ 20 Meq/L Kcl) 1,000 mls @ 100 mls/hr IV Q10H [facility] Last Admin: 12/11/17 13:51 Dose: Not Given Morphine Sulfate (Morphine) 2 mg IVPUSH ONETIME ONE Stop: 12/09/17 01:53 Last Admin: 12/09/17 02:54 Dose: 2 mg Morphine Sulfate (Morphine) 2 mg IVPUSH Q4H PRN PRN Reason: Pain Last Admin: 12/09/17 09:52 Dose: 2 mg Morphine Sulfate (Morphine) 2 mg IVPUSH Q1H PRN PRN Reason: BREAKTHRU PAIN Stop: 12/10/17 11:00 Last Admin: 12/10/17 03:40 Dose: 2 mg Nalbuphine HCl (Nubain) 10 mg SUBCUT Q6H PRN PRN Reason: PRURITUS Stop: 12/10/17 11:00 Naloxone HCl (Narcan) 0.1 mg IVPUSH ASDIRECTED PRN PRN Reason: RESPIRATORY STATUS Stop: 12/10/17 11:00 Promethazine HCl (Phenergan) 6.25 mg IV Q4H PRN PRN Reason: N/V Stop: 12/10/17 11:00 Promethazine HCl (Phenergan) 12.5 mg IV Q4H PRN PRN Reason: N/V Stop: 12/10/17 11:00 - Exam General: Alert, Oriented HEENT: Pupils Equal Neurological: No New Focal Deficit Psy/Mental Status: Alert - Problem List & Annotations (1) Fracture of neck of femur, hip SNOMED Code(s): 7574786 Code(s): S72.009A - FRACTURE OF UNSP PART OF NECK OF UNSP FEMUR, INIT Status: Chronic Current Visit: Yes (2) Hypertension SNOMED Code(s): 42856194 Code(s): I10 - ESSENTIAL (PRIMARY) HYPERTENSION Status: Chronic Current Visit: Yes Qualifiers: Hypertension type: essential hypertension Qualified Code(s): I10 - Essential (primary) hypertension - Problem List Review Problem List Initiated/Reviewed/Updated: Yes - My Orders Last 24 Hours: No changes.Continue PT,OT. DC tomorrow per Dr Edward - Plan Plan:: a: 77 yo female minimally displaced right valgus impacted femoral neck fracture s/p orif cannulated screws POD 2 p: wbat, pt/ot, pain control, advance diet, zofran prn, d/c to [facility] per hospitalist
[2017-12-13] MEDS: Acetaminophen 325 MG Tab PO PRN ×2 (03:05→10:27)
[2017-12-13] MEDS: Mycophenolate Mofetil 250 MG Cap PO SCH (08:27)
[2017-12-13] MEDS: Hydrochlorothiazide/Lisinopril 12.5-20 MG Tab PO SCH (08:27)
[2017-12-13] MEDS: Diltiazem IR 30 MG Tab PO SCH (08:27)
[2017-12-13] MEDS: Aspirin 325 MG Tab.EC PO SCH (08:28)
[2017-12-13] MEDS: Multivitamin Tab PO SCH (08:28)
[2017-12-13] MEDS: Sulfamethoxazole/Trimethoprim 400-80 MG Tab PO SCH (08:28)
[2017-12-13] MEDS: Tacrolimus 0.5 MG Cap PO SCH (08:28)
[2017-12-13] MEDS: predniSONE 5 MG Tab PO SCH (08:28)
[2017-12-13] MEDS: Cholecalciferol (Vitamin D3) 1,000 Unit Tab PO SCH (08:28)
[2017-12-13] MEDS: Fenofibrate Nanocrystallized 145 MG Tab PO SCH (08:28)
[2017-12-13 08:29] VITALS: BP 131/60
--- NOTE | 2017-12-13 10:56 | PCM.DCSUM1 ---
Discharge Summary - Hospital Course HPI Initial Comments: 77 yo female right femoral neck fracture, valgus impacted, closed Diagnosis: Stroke: No - Discharge Data Discharge Date: 12/13/17 Discharge Disposition: Home, Self-Care 01 Condition: Stable - Discharge Diagnosis/Problem(s) (1) Fracture of neck of femur, hip SNOMED Code(s): 7873611 ICD Code: S72.009A - FRACTURE OF UNSP PART OF NECK OF UNSP FEMUR, INIT Status: Chronic Current Visit: Yes - Patient Summary/Data Operative Procedure(s) Performed: cannulated screws r femoral neck Complications: none Consults: Consultations 12/09/17 12:14 OT Evaluation and Treatment [CONS] Routine Please Evaluate and Treat. OT Reason for Consult: Strengthening This query below is only for informational purposes and is not editable. Admission Diagnosis/Problem: Hip fracture requiring operative repair PT Evaluation and Treatment [CONS] Routine Please Evaluate and Treat. PT Reason for Consult: Strengthening This query below is only for informational purposes and is not editable. Admission Diagnosis/Problem: Hip fracture requiring operative repair Respiratory Care Assess and Treatment [CONS] Routine Comment: Physician Instructions: Post-Op Pneumonia Prevention - Patient Instructions Diet: Usual Diet as Tolerated Activity: Apply Ice, As Tolerated, Full Weight Bearing, No Strenuous Activities Driving: Do Not Drive Showering/Bathing: May Shower Showering/Bathing, Other: do not submerge inscision underwater in bath tub or hot tub Wound/Incision Care: Keep Operative Site/Wound Site Clean and Dry Wound/Incision, Other: change every2-3 days with gauze and tape Notify Provider of: Fever, Increased Pain, Swelling and Redness, Drainage, Nausea and/or Vomiting - Discharge Plan *PRESCRIPTION DRUG MONITORING PROGRAM REVIEWED*: No *COPY OF PRESCRIPTION DRUG MONITORING REPORT IN PATIENT JASON: Not Applicable Home Medications: Home Meds Diltiazem [Cardizem] 90 mg PO BID 06/12/13 [History] Lisinopril/Hydrochlorothiazide [Zestoretic 20-12.5 mg Tablet] 1 tab PO BID 06/12 [History] Multivitamin [Multi-Vitamin Daily] 1 each PO DAILY 06/12/13 [History] Tacrolimus [Prograf] 0.5 mg PO BID 06/12/13 [History] predniSONE 5 mg PO DAILY 06/12/13 [History] Mycophenolate Mofetil [Cellcept] 1,000 mg PO BID 06/15/13 [History] Aspirin [Lo-Dose Aspirin EC] 81 mg PO BID 06/25/16 [History] Cholecalciferol (Vitamin D3) [Vitamin D3] 2,000 unit PO DAILY 06/25/16 [History] Fenofibrate Nanocrystallized [Fenofibrate] 145 mg PO DAILY 06/25/16 [History] Sulfamethoxazole/Trimethoprim [Septra] 1 tab PO DAILY 06/25/16 [History] Forms: ED Department Discharge Referrals: PCP,Unknown [Ordering Only Provider] - Juan Edward DO [Physician] - - Discharge Summary/Plan Comment DC Time >30 min.: No - General Info Functional Status: Reports: Pain Controlled, Tolerating Diet, Ambulating, Urinating - Review of Systems General: Reports: No Symptoms HEENT: Reports: No Symptoms Pulmonary: Reports: No Symptoms Cardiovascular: Reports: No Symptoms Gastrointestinal: Reports: No Symptoms Genitourinary: Reports: No Symptoms Musculoskeletal: Reports: Leg Pain, Joint Pain Skin: Reports: No Symptoms Neurological: Reports: No Symptoms Psychiatric: Reports: No Symptoms - Patient Data Vitals - Most Recent: Last Vital Signs Temp 98.4 F 12/13/17 07:30 Pulse 77 12/13/17 07:30 Resp 18 12/13/17 07:30 BP 131/60 12/13/17 08:27 Pulse Ox 93 L 12/13/17 01:23 Weight - Most Recent: 162 lb 11.2 oz I&O - Last 24 hours: Intake & Output 12/12/17 12/13/17 12/13/17 22:59 06:59 14:59 Intake Total 150 Output Total 1100 Balance -1100 150 Med Orders - Current: Current Medications Acetaminophen (Tylenol) 650 mg PO Q4H PRN PRN Reason: Pain Last Admin: 12/13/17 10:27 Dose: 650 mg Hydrocodone Bitart/Acetaminophen (Garrison 325-5 Mg) 1 tab PO Q3H PRN PRN Reason: MODERATE Pain Aspirin (Ecotrin) 325 mg PO DAILY [facility] Last Admin: 12/13/17 08:28 Dose: 325 mg Cholecalciferol (Vitamin D3) 2,000 units PO DAILY [facility] Last Admin: 12/13/17 08:28 Dose: 2,000 units Diltiazem HCl (Cardizem) 90 mg PO BID [facility] Last Admin: 12/13/17 08:27 Dose: 90 mg Fenofibrate (Tricor) 145 mg PO DAILY [facility] Last Admin: 12/13/17 08:28 Dose: 145 mg Lisinopril/HCTZ (Lisinopril/Hctz 20-12.5 Mg) 1 tab PO BID [facility] Last Admin: 12/13/17 08:27 Dose: 1 tab Multivitamins/Minerals/Vitamin C (Tab-A-Tip) 1 tab PO DAILY [facility] Last Admin: 12/13/17 08:28 Dose: 1 tab Mycophenolate Mofetil (Cellcept) 1,000 mg PO BID [facility] Last Admin: 12/13/17 08:27 Dose: 1,000 mg Ondansetron HCl (Zofran) 4 mg IVPUSH Q8H PRN PRN Reason: Nausea/Vomiting Last Admin: 12/11/17 10:46 Dose: 4 mg Prednisone (Prednisone) 5 mg PO DAILY [facility] Last Admin: 12/13/17 08:28 Dose: 5 mg Senna/Docusate Sodium (Senna Plus) 1 tab PO BID [facility] Last Admin: 12/13/17 08:28 Dose: 1 tab Sodium Chloride (Saline Flush) 10 ml FLUSH ASDIRECTED PRN PRN Reason: Keep Vein Open Last Admin: 12/10/17 11:53 Dose: 10 ml Tacrolimus (Prograf) 0.5 mg PO BID [facility] Last Admin: 12/13/17 08:28 Dose: 0.5 mg Tramadol HCl (Ultram) 100 mg PO Q4H PRN PRN Reason: MILD Pain Last Admin: 12/11/17 06:17 Dose: 100 mg Trimethoprim/Sulfamethoxazole (Septra) 1 tab PO DAILY [facility] Last Admin: 12/13/17 08:28 Dose: 1 tab Discontinued Medications Aspirin (Halfprin) 81 mg PO BID [facility] Diphenhydramine HCl (Benadryl) 25 mg IVPUSH ASDIRECTED PRN PRN Reason: PRURITUS Stop: 12/10/17 11:00 Hydroxyzine HCl (Vistaril) 25 - 50 mg IM Q4H PRN PRN Reason: N/V Stop: 12/10/17 11:00 Potassium Chloride/Dextrose/Sod Cl (D5 1/2 Ns W/ 20 Meq/L Kcl) 1,000 mls @ 100 mls/hr IV ASDIRECTED [facility] Stop: 12/10/17 15:59 Last Admin: 12/10/17 06:04 Dose: 100 mls/hr Cefazolin Sodium/Dextrose 2 gm (/ Premix) 50 mls @ 100 mls/hr IV Q8H [facility] Stop: 12/10/17 11:29 Last Admin: 12/10/17 11:55 Dose: 100 mls/hr Naloxone HCl 0.4 mg/ Sodium (Chloride) 101 mls @ 25 mls/hr IV ASDIRECTED PRN PRN Reason: RESPIRATORY STATUS Potassium Chloride/Dextrose/Sod Cl (D5 1/2 Ns W/ 20 Meq/L Kcl) 1,000 mls @ 100 mls/hr IV Q10H [facility] Last Admin: 12/11/17 13:51 Dose: Not Given Morphine Sulfate (Morphine) 2 mg IVPUSH ONETIME ONE Stop: 12/09/17 01:53 Last Admin: 12/09/17 02:54 Dose: 2 mg Morphine Sulfate (Morphine) 2 mg IVPUSH Q4H PRN PRN Reason: Pain Last Admin: 12/09/17 09:52 Dose: 2 mg Morphine Sulfate (Morphine) 2 mg IVPUSH Q1H PRN PRN Reason: BREAKTHRU PAIN Stop: 12/10/17 11:00 Last Admin: 12/10/17 03:40 Dose: 2 mg Nalbuphine HCl (Nubain) 10 mg SUBCUT Q6H PRN PRN Reason: PRURITUS Stop: 12/10/17 11:00 Naloxone HCl (Narcan) 0.1 mg IVPUSH ASDIRECTED PRN PRN Reason: RESPIRATORY STATUS Stop: 12/10/17 11:00 Promethazine HCl (Phenergan) 6.25 mg IV Q4H PRN PRN Reason: N/V Stop: 12/10/17 11:00 Promethazine HCl (Phenergan) 12.5 mg IV Q4H PRN PRN Reason: N/V Stop: 12/10/17 11:00 - Exam General: Reports: Alert, Oriented HEENT: Reports: Pupils Equal, Pupils Reactive, Mucous Membr. Moist/[place] Neck: Reports: Supple, Trachea Midline Lungs: Reports: Normal Respiratory Effort Extremities: Leg Pain Skin: Reports: Warm, Dry, Intact Wound/Incisions: Reports: Healing Well, Dressing Dry and Intact, No Drainage Neurological: Reports: No New Focal Deficit Psy/Mental Status: Reports: Alert, Normal Affect, Normal Mood
== END 2017-12-13 12:35 | disposition home or self-care (01) | DRG 481 ==
LOC: FB.ED 01:29 → FB.MS 02:50
PROVIDERS: ADMIT Emergency Medicine; ATTEND Family Medicine
PROC: 0QS604Z Reposition Right Upper Femur with Internal Fixation Device, Open Approach (ICD-10-PCS; principal; 2017-12-09)
DX: S72.011A Unspecified intracapsular fracture of right femur, initial encounter for closed fracture (principal); Z94.0 Kidney transplant status; Z51.5 Encounter for palliative care; I12.9 Hypertensive chronic kidney disease with stage 1 through stage 4 chronic kidney disease, or unspecified chronic kidney disease; N18.9 Chronic kidney disease, unspecified; Z87.891 Personal history of nicotine dependence; W01.198A Fall on same level from slipping, tripping and stumbling with subsequent striking against other object, initial encounter; M25.551 Pain in right hip; Y92.89 Other specified places as the place of occurrence of the external cause; K59.09 Other constipation; M19.90 Unspecified osteoarthritis, unspecified site; Z85.828 Personal history of other malignant neoplasm of skin; Z90.01 Acquired absence of eye; Z79.52 Long term (current) use of systemic steroids; Z91.041 Radiographic dye allergy status; Z88.8 Allergy status to other drugs, medicaments and biological substances; Z79.82 Long term (current) use of aspirin; Z86.79 Personal history of other diseases of the circulatory system
CPT/HCPCS: 36415; 51702; 72192; 73502; 80048; 85025; 85610; 99284; 99285; J7050; 73501-RT; 76000; 93005; 94150; 96374; 97116-GP; 97161-GP; 97166-GO; 97530-GO; 97535-GO; A9270-GY; C1713; J0690; J2270; J2370; J2405; J2704; J3480; J7120

== ENCOUNTER 2019-09-29 08:07 | Day surgery (SDC) | payer MEDICARE, MEDICAID ==
--- NOTE | 2019-09-28 01:10 | PREOP ---
ADMISSION DATE: 09/29/2019 PROCEDURE: Right cataract removal and intraocular lens placement. CLINICAL INDICATION: Refractive difficulties. ANESTHESIA: Local with anesthesia standby. PROVIDER OF RECORD: Mary Mitchell MD, Ophthalmology. CONSULTING PHYSICIANS: Dr. Whitney Umaña, Family Medicine. HISTORY OF PRESENT ILLNESS: Ashley Umaña is a 79-year-old female from [place], [place], was seen at [facility] on 09/23/2019 at 10:00 a.m. for preop examination. She is scheduled for right cataract removal and intraocular lens placement on 09/29/2019 under the care of Dr. Mary Mitchell, Ophthalmology, [facility]. Please see Dr. Mitchell's clinical notes. Risks and benefits per Dr. Mitchell. MEDICATIONS: Present daily medications include; 1. Zestoretic 10/12.5, 1 p.o. b.i.d., blood pressure. 2. Tricor 145, 1 p.o. daily, hyperlipidemia. 3. Cardizem 90 mg 1 p.o. daily, blood pressure/kidney disease. 4. Prednisone 5 mg 1 p.o. daily, kidney transplant. 5. CellCept 250, 4 capsules by mouth q.12 hours, kidney transplant. 6. Prograf 0.5 mg q.12 hours, kidney transplant. 7. Bactrim DS 1 p.o. daily, urinary infection prevention. 8. Os-Favian 500, 2 tabs daily, nutrition. 9. Aspirin 80 mg 1 p.o. b.i.d., heart. 10.Vitamin D3 2000 units one daily. ALLERGIES: Allergic to contrast, Demerol, MMR, NSAIDs, and Zostavax by report. No other medication, environmental, or latex allergies. PAST HEALTH: Significant for previous kidney transplants due to polycystic kidney disease. She has had 2 breast biopsies performed in 1981 and 1982, both benign. Surgical removal of left eye. Left hip fracture. Herniorrhaphy. Remote tonsillectomy. 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 Chronic illnesses include polycystic disease, secondary hypertension, hyperlipidemia. SOCIAL HISTORY: Happily . 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 Nonsmoker. No alcohol. No illicit drug use. FAMILY HISTORY: Mom at age 48 of polycystic kidney disease, and chronic kidney disease. Dad in his 80s. No family history of early heart disease, diabetes mellitus, or inheritable cancer. REVIEW OF SYSTEMS: CONSTITUTIONAL: Feeling generally well. EYES: Please see HPI. EARS: Hears well, some difficulty in crowds. OROPHARYNX: Intact dentition. No loose teeth. CARDIOVASCULAR: Denies chest pain, palpitations, or syncope. RESPIRATORY: No chronic cough, wheeze, or congestion. GASTROINTESTINAL: Regular predictable stools. No blood in stools. GENITOURINARY: Good voiding pattern. No blood in urine. ORTHOPEDIC: General aches and pains. SKIN: No lesions, eruptions, or moles. ENDOCRINE: No excessive thirst or urination. PSYCHOLOGICAL: Mood stable. PHYSICAL EXAMINATION: VITAL SIGNS: 97.3 degrees Fahrenheit, 146.7 pounds, 68 inches tall, pulse 68, respirations 16, and blood pressure 130/56. GENERAL: Cooperative, conversant, and gives good history. Appropriately gowned. HEENT: Funduscopic exam per Dr. Mitchell. Bright tympanic membranes. No cerumen. Clear nasal discharge. Midline septum. Mouth and oropharynx clear. Dentition excellent for age. Tongue midline. Good gag reflex. Absent tonsils. NECK: Benign. Thyroid small. No adenopathy. No carotid bruits. CHEST: On auscultation, clear in all lung zamora. HEART: On auscultation, no ectopy or murmur. BREASTS: Exam declined. ABDOMEN: Surgical scars well healed. No hepatosplenomegaly. No abdominal kidneys palpable. GENITOURINARY AND RECTAL: Deferred. EXTREMITIES: Well perfused. LABORATORY STUDIES: Recent CBC 09/02/2017; revealed white count 3900, hemoglobin 11.7, hematocrit 37.1, and normal indices. Electrolytes 09/03/2019; BUN 28, creatinine 1.3, GFR 37, potassium 3.5, and glucose 87. ASSESSMENT: Preoperative examination for upcoming cataract surgery. No contraindication. SECONDARY DIAGNOSIS: Please see body of history and physical. PLAN: No contraindication. The patient is a suitable candidate. All medications can be held on the morning of the procedure. /[id number] GIGI/RENALDO
[~2019-09-29 08:07] MED LIST: Lactated Ringers 1,000 ML IV PRN; Sodium Chloride 0.9% 10 ML Syringe FLUSH PRN
[2019-09-29] MEDS ORDERED: Lidocaine 2% 5 ML SDV INJECT ONE (08:08)
[2019-09-29] MEDS ORDERED: fentaNYL 100 MCG/2 ML SDV IV ONE (08:08)
[2019-09-29] MEDS ORDERED: Midazolam 1 MG/ML 2 ML SDV IV ONE (08:08)
[2019-09-29] MEDS ORDERED: acetaZOLAMIDE 500 MG Cap.ER PO ONE (10:00)
[2019-09-29 11:04] VITALS: BP 122/60; PULSE 61
--- NOTE | 2019-09-29 14:10 | OR ---
DATE OF OPERATION: 09/29/2019 SURGEON: Mary Mitchell MD PREOPERATIVE DIAGNOSIS: Visually significant cataract, right eye. POSTOPERATIVE DIAGNOSIS: Visually significant cataract, right eye. PROCEDURES PERFORMED: Phacoemulsification with intraocular lens placement, right eye. ASSISTANTS: None. ANESTHESIA: Local with sedation. COMPLICATIONS: None. BLOOD LOSS: None. IMPLANTS: Tristen [id number], 17.0 diopter lens implanted. CDE: 1.67. DESCRIPTION OF PROCEDURE: After risks and benefits were reviewed with the patient, consent was obtained in the preoperative area, and the operative eye was marked with a surgical pen. In the preoperative area, a pledget was used to dilate the pupil consisting of a mixture of phenylephrine 10%, cyclopentolate 2%, moxifloxacin 0.5%, and bupivacaine 0.75%. The patient was taken to the operating room, where a time-out was performed, and the patient was placed under monitored anesthesia care. Topical tetracaine was used for anesthesia. The operative eye was prepped and draped for ophthalmic surgery, and the microscope was brought into position and focused. A paracentesis incision was made, followed by injection of preservative-free 1% lidocaine into the anterior chamber, followed by injection of Viscoat into the anterior chamber. A microkeratome blade was used to make a corneal limbal incision temporally. A cystotome was used to make the beginning of the capsulorrhexis, which was carried around 360 degrees in a curvilinear fashion using Utrata forceps. A Roa cannula with BSS was used to hydrodissect and hydrodelineate the nucleus. The nucleus was removed in a divide and conquer manner using phacoemulsification. Irrigation and aspiration were used to remove the remaining cortical material. Provisc was used to inflate the capsular bag, and a pre-loaded Tristen [id number], 17.0 diopter lens, serial number [id number] was injected into the capsular bag. A Sinskey hook was used to position and center the lens. Next, irrigation and aspiration was used to remove any remaining viscoelastic and cortical material from the anterior chamber. BSS on a cannula was used to inflate the anterior chamber and hydrate the wound. The wound was checked and found to be watertight. 1 mg of Moxifloxacin was injected into the anterior chamber. Drapes were removed and the eye was cleaned. A drop of brimonidine 0.15% and a drop of TobraDex was placed. The eye was shielded, and the patient was taken to the recovery room in stable condition. /[id number] MEREDITH/RENALDO CC: ELVIN VALDEZ MD MTDD
== END 2019-09-29 11:00 | disposition home or self-care (01) ==
LOC: FB.SDS 08:07
PROVIDERS: ATTEND Ophthalmology
DX: H25.811 Combined forms of age-related cataract, right eye (principal); H43.811 Vitreous degeneration, right eye; D31.31 Benign neoplasm of right choroid; H54.12 Blindness, left eye, low vision right eye; H52.221 Regular astigmatism, right eye; I15.9 Secondary hypertension, unspecified; Z79.899 Other long term (current) drug therapy; Z98.42 Cataract extraction status, left eye
CPT/HCPCS: 00142-QZ; A9270-GY; J2001; J2250; J3010

== ENCOUNTER 2019-10-23 12:38 | Emergency (ER) | payer MEDICARE, MEDICAID ==
[2019-10-23] MEDS ORDERED: Sodium Chloride 0.9% 10 ML Syringe FLUSH PRN (14:00)
--- NOTE | 2019-10-23 14:06 | EDM.PDOC ---
ED HPI GENERAL MEDICAL PROBLEM - General Chief Complaint: Cardiovascular Problem Time Seen by Provider: 10/23/19 13:00 Source of Information: Reports: Patient History Limitations: Reports: No Limitations - History of Present Illness INITIAL COMMENTS - FREE TEXT/NARRATIVE: pt comes in ambulatory with concerns for afib, tells me she felt her hear beating irregular around 9:30 am with HR around 120, along with mild SOB, denies any chest pain or cough or dizziness or any other associated sx or concerns, went to clinic first and then was directed here for evaluation, upon her arrival she was noted to be in sinus rhythm and reporting that she feels fine now. pt indicate a known Hx of intermittent afib for 10 years, she is on Cardizem and asa , was on Coumadin but was taken of secondary to hematuria, pt has Hx of kidney transplant. 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 - Related Data Allergies Allergy/AdvReac Type Severity Reaction Status Date / Time NSAIDS (Non-Steroidal Allergy Other Verified 10/23/19 13:00 Anti-Inflamma zoster vaccine live Allergy Other Verified 10/23/19 13:00 [From Zostavax (PF)] meperidine [From Demerol] AdvReac NAUSEA,VOMI Verified 10/23/19 13:00 TING,DIARRH EA CONTRAST DYE Allergy Intermediate Hives Uncoded 10/23/19 13:00 MMR Allergy Other Uncoded 10/23/19 13:00 Home Meds: Home Meds Diltiazem [Cardizem] 90 mg PO BID 06/12/13 [History] Lisinopril/Hydrochlorothiazide [Zestoretic 20-12.5 mg Tablet] 1 tab PO BID 06/12/13 [History] Multivitamin [Multi-Vitamin Daily] 1 each PO DAILY 06/12/13 [History] Cholecalciferol (Vitamin D3) [Vitamin D3] 2,000 unit PO 1800 06/25/16 [History] Fenofibrate Nanocrystallized [Fenofibrate] 145 mg PO 1800 06/25/16 [History] Sulfamethoxazole/Trimethoprim [Septra] 1 tab PO DAILY 06/25/16 [History] Calcium Carbonate [Calcium] 1 tab PO BID 09/28/19 [History] Aspirin 81 mg PO DAILY 10/23/19 [History] Tacrolimus [Prograf] 5 mg PO BID 10/23/19 [History] mycophenolate mofetiL [Cellcept] 750 mg PO BID 10/23/19 [History] predniSONE [Prednisone] 5 mg PO DAILY 10/23/19 [History] Past Medical History HEENT History: Reports: Other (See Below) Other HEENT History: 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 Cardiovascular History: Reports: Afib, High Cholesterol, Hypertension Gastrointestinal History: Reports: Chronic Constipation, Colon Polyp Genitourinary History: Reports: Renal Disease, Other (See Below) Other Genitourinary History: BILAT KIDNEY TRANSPLANT (stated on adm that had kidney transplant on left not bilateral for polycystic kidney disease) 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 WIRE ARTIST 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: Reports: Other HIGH WIRE ARTIST History: Musculoskeletal History: Reports: Fracture, Osteoarthritis Other Musculoskeletal History: bilat hip fx, Psychiatric History: Reports: Psych Hospitalization(s), Suicide Attempt Immunologic History: Reports: Solid Organ Transplant Oncologic (Cancer) History: Reports: Basal Cell Carcinoma, Other (See Below) Other Oncologic History: SKIN Dermatologic History: Reports: Other (See Below) Other Dermatologic History: basal cell - Infectious Disease History Infectious Disease History: Reports: Mumps - Past Surgical History HEENT Surgical History: Reports: Cataract Surgery, Eye Surgery Other HEENT Surgeries/Procedures: L eye, R eye cataract GI Surgical History: Reports: Colonoscopy, Hernia Repair/Other Other GI Surgeries/Procedures: R ing hernia repair Female Surgical History: Reports: Nephrectomy Other Female Surgeries/Procedures: KIDNEY TRANSPLANT 17 YRS AGO Musculoskeletal Surgical History: Reports: Hip Replacement, Other (See Below) Other Musculoskeletal Surgeries/Procedures:: bilat hip replacements Dermatological Surgical History: Reports: Skin Biopsy Social & Family History - Family History Family Medical History: Noncontributory Other Cardiac Family History: Father CHF. : Reports: Other (See Below) Hematologic: Reports: Other (See Below) - Tobacco Use Smoking Status *Q: Former Smoker Used Tobacco, but Quit: Yes Month/Year Tobacco Last Used: 1979 - Caffeine Use Caffeine Use: Reports: Coffee - Recreational Drug Use Recreational Drug Use: No ED ROS GENERAL - Review of Systems Review Of Systems: See Below Constitutional: Reports: No Symptoms HEENT: Reports: No Symptoms Respiratory: Reports: No Symptoms Cardiovascular: Reports: Dyspnea on Exertion, Palpitations. Denies: Chest Pain, Blood Pressure Problem, Claudication, Edema, Lightheadedness, Orthopnea, PND, Syncope Endocrine: Reports: No Symptoms GI/Abdominal: Reports: No Symptoms Musculoskeletal: Reports: No Symptoms Skin: Reports: No Symptoms Neurological: Reports: No Symptoms ED EXAM, GENERAL - Physical Exam Exam: See Below Exam Limited By: No Limitations General Appearance: Alert, No Apparent Distress Eye Exam: Bilateral Eye: Normal Inspection Nose: Normal Inspection Throat/Mouth: Normal Inspection Head: Atraumatic, Normocephalic Neck: Normal Inspection, Supple, Non-Tender Respiratory/Chest: No Respiratory Distress, Lungs Clear, Normal Breath Sounds Cardiovascular: Normal Peripheral Pulses, Regular Rate, Rhythm, No Murmur GI/Abdominal: Normal Bowel Sounds, Soft, Non-Tender Back Exam: Normal Inspection Extremities: Normal Inspection, Normal Range of Motion Neurological: Alert, Oriented, CN II-XII Intact, Normal Reflexes, No Motor/Sensory Deficits Psychiatric: Normal Affect Course - Vital Signs Text/Narrative:: EKG shows NSR , no acute changes, BNP is elevated and her CXR is clear, trop is neg, ddimer is slightly up and no clinical signs of PE, no clinical signs of PE, cr is 1.7 , TSH is WNL. pt is asymptomatic here, it seems that she had a run of afib and now converted on her own to NSR, vitals are stable , no intervention is needed, she is medically stable for discharge with instruction to follow up with PCP early this coming week. pt to continue with current medications including Coumadin and ASA. Last Recorded V/S: Last Vital Signs Temp 36.5 C 10/23/19 12:40 Pulse 84 10/23/19 12:40 Resp 18 10/23/19 12:40 BP 146/51 H 10/23/19 12:40 Pulse Ox 99 10/23/19 12:40 - Orders/Labs/Meds Orders: Active Orders 24 hr Category Date Time Status EKG Documentation Completion [RC] ASDIRECTED Care 10/23/19 13:01 Active Chest 1V Frontal [CR] Stat Exams 10/23/19 13:02 Taken EKG 12 Lead [EK] Routine Ther 10/23/19 13:01 Ordered Labs: Laboratory Tests 10/23/19 10/23/19 10/23/19 Range/Units 12:50 12:50 12:50 WBC 6.5 (4.5-12.0) X10-3/uL RBC 4.16 (3.23-5.20) x10(6)uL Hgb 12.5 (11.5-15.5) g/dL Hct 38.5 (30.0-51.3) % MCV 92.4 (80-96) fL MCH 29.9 (27.7-33.6) pg MCHC 32.4 (32.2-35.4) g/dL RDW 13.5 (11.5-15.5) % Plt Count 182 (125-369) X10(3)uL MPV 10.4 (7.4-10.4) fL Neut % (Auto) 85.2 H (46-82) % Lymph % (Auto) 8.6 L (13-37) % Parmer % (Auto) 5.6 (4-12) % Eos % (Auto) 0 L (1.0-5.0) % Baso % (Auto) 0 (0-2) % Neut # (Auto) 5.5 (1.6-8.3) # Lymph # (Auto) 0.6 (0.6-5.0) # Parmer # (Auto) 0.4 (0.0-1.3) # Eos # (Auto) 0.0 (0.0-0.8) # Baso # (Auto) 0.0 (0.0-0.2) # D-Dimer, Quantitative (0.0-0.59) mg/LFEU Sodium 141 (135-145) mmol/L Potassium 4.0 (3.5-5.3) mmol/L Chloride 104 (100-110) mmol/L Carbon Dioxide 30 (21-32) mmol/L BUN 37 H (7-18) mg/dL Creatinine 1.7 H (0.55-1.02) mg/dL Est Cr Clr Drug Dosing TNP Estimated GFR (MDRD) 29 L (>60) BUN/Creatinine Ratio 21.8 H (9-20) Glucose 118 H (80-116) mg/dL Calcium 9.7 (8.6-10.2) mg/dL Total Bilirubin 0.7 (0.1-1.3) mg/dL AST 38 H (5-25) IU/L ALT 30 (12-36) U/L Alkaline Phosphatase 49 L (56-112) IU/L Troponin I 31.9 (4.0-60.3) pg/mL NT-Pro-B Natriuret Pep 3139 H* (<=450) pg/mL Total Protein 6.7 (6.0-8.0) g/dL Albumin 4.0 (3.2-4.6) g/dL Globulin 2.7 g/dL Albumin/Globulin Ratio 1.5 TSH, Ultra Sensitive (0.36-3.74) IU/mL 10/23/19 10/23/19 Range/Units 12:50 12:50 WBC (4.5-12.0) X10-3/uL RBC (3.23-5.20) x10(6)uL Hgb (11.5-15.5) g/dL Hct (30.0-51.3) % MCV (80-96) fL MCH (27.7-33.6) pg MCHC (32.2-35.4) g/dL RDW (11.5-15.5) % Plt Count (125-369) X10(3)uL MPV (7.4-10.4) fL Neut % (Auto) (46-82) % Lymph % (Auto) (13-37) % Parmer % (Auto) (4-12) % Eos % (Auto) (1.0-5.0) % Baso % (Auto) (0-2) % Neut # (Auto) (1.6-8.3) # Lymph # (Auto) (0.6-5.0) # Parmer # (Auto) (0.0-1.3) # Eos # (Auto) (0.0-0.8) # Baso # (Auto) (0.0-0.2) # D-Dimer, Quantitative 0.67 H (0.0-0.59) mg/LFEU Sodium (135-145) mmol/L Potassium (3.5-5.3) mmol/L Chloride (100-110) mmol/L Carbon Dioxide (21-32) mmol/L BUN (7-18) mg/dL Creatinine (0.55-1.02) mg/dL Est Cr Clr Drug Dosing Estimated GFR (MDRD) (>60) BUN/Creatinine Ratio (9-20) Glucose (80-116) mg/dL Calcium (8.6-10.2) mg/dL Total Bilirubin (0.1-1.3) mg/dL AST (5-25) IU/L ALT (12-36) U/L Alkaline Phosphatase (56-112) IU/L Troponin I (4.0-60.3) pg/mL NT-Pro-B Natriuret Pep (<=450) pg/mL Total Protein (6.0-8.0) g/dL Albumin (3.2-4.6) g/dL Globulin g/dL Albumin/Globulin Ratio TSH, Ultra Sensitive 2.19 (0.36-3.74) IU/mL Departure - Departure Time of Disposition: 14:13 Disposition: Home, Self-Care 01 Clinical Impression: Afib Referrals: Dwayne Umaña MD [Primary Care Provider] - Sepsis Event Note (ED) - Evaluation Sepsis Screening Result: No Definite Risk - Focused Exam Vital Signs: Vital Signs Temp Pulse Resp BP Pulse Ox 10/23/19 12:40 36.5 C 84 18 146/51 H 99 - My Orders Last 24 Hours: My Active Orders 10/23/19 13:01 EKG Documentation Completion [RC] ASDIRECTED EKG 12 Lead [EK] Routine 10/23/19 13:02 Chest 1V Frontal [CR] Stat - Assessment/Plan Last 24 Hours: My Active Orders 10/23/19 13:01 EKG Documentation Completion [RC] ASDIRECTED EKG 12 Lead [EK] Routine 10/23/19 13:02 Chest 1V Frontal [CR] Stat
--- NOTE | 2019-10-23 16:29 | CR ---
INDICATION: Short of breath. CHEST, ONE VIEW: An AP upright view of the chest was obtained and revealed heart to be normal in size and shape. Overlying EKG leads are noted. A definite active infiltrate or effusion was not identified. 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 The current examination is 10/23/19 and is compared with 12/24/11 and 12/16/08. Overlying EKG leads are noted. Overlying apparel is noted. IMPRESSION: No definite acute process. No finding to suggest CHF is identified. MTDD
[2019-10-23 18:22] VITALS: BP 125/52; PULSE 70
== END 2019-10-23 15:15 | disposition home or self-care (01) ==
LOC: FB.ED 12:38
DX: I48.91 Unspecified atrial fibrillation (principal); E78.00 Pure hypercholesterolemia, unspecified; I10 Essential (primary) hypertension; M19.90 Unspecified osteoarthritis, unspecified site; Z79.82 Long term (current) use of aspirin; Z79.899 Other long term (current) drug therapy; Z87.891 Personal history of nicotine dependence; Z88.8 Allergy status to other drugs, medicaments and biological substances; Z88.5 Allergy status to narcotic agent; Z91.041 Radiographic dye allergy status
CPT/HCPCS: 36415; 71045; 80053; 83880; 84443; 84484; 85025; 85379; 93005; 99283; 99285-25

== ENCOUNTER 2021-07-30 05:26 | Emergency (ER) | payer MEDICARE, MEDICAID ==
[2021-07-30] MEDS ORDERED: Aspirin 81 MG Tab.Chew PO ONE (05:40)
[2021-07-30 19:39] VITALS: BP 144/69; PULSE 69
== END 2021-07-30 09:30 | disposition home or self-care (01) ==
LOC: FB.ED 05:26
DX: R07.89 Other chest pain (principal); F41.9 Anxiety disorder, unspecified; F32.A Depression, unspecified; I12.9 Hypertensive chronic kidney disease with stage 1 through stage 4 chronic kidney disease, or unspecified chronic kidney disease; N18.9 Chronic kidney disease, unspecified; I48.91 Unspecified atrial fibrillation; E78.00 Pure hypercholesterolemia, unspecified; M19.90 Unspecified osteoarthritis, unspecified site; Z91.041 Radiographic dye allergy status; Z88.7 Allergy status to serum and vaccine; Z88.5 Allergy status to narcotic agent; Z79.899 Other long term (current) drug therapy; Z79.82 Long term (current) use of aspirin; Z87.891 Personal history of nicotine dependence
CPT/HCPCS: 36415; 71045; 80053; 81001; 84484; 85025; 93005; 93010; 99283; 99285-25; A9270-GY

== ENCOUNTER 2022-07-28 10:56 | Emergency (ER) | payer MEDICARE, MEDICAID ==
[2022-07-28 11:27] LABS: BASOPHILS PERCENT AUTO 0.1 % (0.2-1.5); EOSINOPHILS PERCENT AUTO 0.1 % (0.6-8.1); HEMATOCRIT 32.9 % (34.2-48.2); HEMOGLOBIN 10.6 g/dL (11.4-15.5); LYMPHOCYTES ABSOLUTE AUTO 0.2 x10-3/uL (1.0-4.4); LYMPHOCYTES PERCENT AUTO 8.8 % (18.4-52.1); MEAN CORPUSCULAR HEMOGLOBIN 29.8 pg (23.9-33.9); MEAN CORPUSCULAR HGB CONC 32.3 g/dL (31.9-34.8); MEAN CORPUSCULAR VOLUME 92.2 fL (76.7-100.5); MEAN PLATELET VOLUME 10.4 fL (7.1-12.4); MONOCYTES ABSOLUTE AUTO 0.4 x10-3/uL (0.3-1.0); MONOCYTES PERCENT AUTO 13.3 % (4.4-15.7); NEUTROPHILS ABSOLUTE AUTO 2.1 x10-3/uL (1.5-6.3); NEUTROPHILS PERCENT AUTO 77.7 % (30.8-76.2); PLATELET COUNT,PLT 110 x10(3)uL (151-488); RED BLOOD CELL COUNT 3.56 x10(6)uL (3.60-5.20); RED CELL DISTRIBUTION WIDTH 15.3 % (12.3-16.5); WHITE BLOOD CELL COUNT,WBC 2.8 x10-3/uL (3.0-10.3)
[2022-07-28 11:30] LABS: BLOOD UREA NITROGEN,BUN 47 mg/dL (7-18); BUN/CREATININE RATIO 24.7 (9-20); CALCIUM 9.5 mg/dL (8.6-10.2); CARBON DIOXIDE,CO2 28 mmol/L (21-32); CHLORIDE,CL 95 mmol/L (100-110); CREATININE 1.9 mg/dL (0.55-1.02); EST CRCL DRUG DOSING (CG) 22.15 mL/min; ESTIMATED GFR 26 mL/min (>60); GLUCOSE RANDOM 110 mg/dL (80-116); POTASSIUM,K 4.4 mmol/L (3.5-5.3); SODIUM,NA 128 mmol/L (135-145)
[2022-07-28 11:36] LABS: A/G RATIO 1.3; ALANINE AMINOTRANSFERASE,ALT 30 U/L (12-36); ALKALINE PHOSPHATASE 65 IU/L (56-112); ASPARTATE AMNIOTRANSFERASE,AST 65 IU/L (5-25); BILIRUBIN TOTAL 0.7 mg/dL (0.1-1.3); PROTEIN TOTAL,TP 5.4 g/dL (6.0-8.0)
[2022-07-28 11:40] LABS: LACTIC ACID 1.7 mmol/L (0.4-2.0)
[2022-07-28 13:24] LABS: APPEARANCE,URINE SLIGHTLY CLOUDY (CLEAR); BILIRUBIN,URINE NEGATIVE (NEGATIVE); COLOR,URINE YELLOW (YELLOW); GLUCOSE,URINE NORMAL (NORMAL); KETONES,URINE NEGATIVE (NEGATIVE); LEUKOCYTE ESTERASE,URINE NEGATIVE (NEGATIVE); NITRITE,URINE NEGATIVE (NEGATIVE); OCCULT BLOOD,URINE LARGE (NEGATIVE); PH,URINE 6.5 (5.0-6.5); PROTEIN,URINE NEGATIVE (NEGATIVE); UROBILINOGEN,URINE NORMAL (NEGATIVE)
[2022-07-28 13:25] LABS: BACTERIA,URINE FEW (NS); SQUAMOUS EPITHELIAL CELLS,UR FEW (NS,R,O); WBC,URINE 0-5 (0-5)
[2022-07-28 14:24] VITALS: BP 155/83; PULSE 89
== END 2022-07-28 15:03 ==
LOC: FB.ED 10:56
DX: E87.1 Hypo-osmolality and hyponatremia (principal); D61.818 Other pancytopenia; R31.9 Hematuria, unspecified; N17.9 Acute kidney failure, unspecified; I48.91 Unspecified atrial fibrillation; R53.1 Weakness; R29.6 Repeated falls; I10 Essential (primary) hypertension; Z94.0 Kidney transplant status; Z91.041 Radiographic dye allergy status; Z88.6 Allergy status to analgesic agent; Z88.8 Allergy status to other drugs, medicaments and biological substances; Z79.899 Other long term (current) drug therapy; Z79.01 Long term (current) use of anticoagulants
CPT/HCPCS: 36415; 71046; 73562-LT; 80053; 81001; 83605; 83735; 83880; 84484; 85025; 85379; 86140; 93005; 99285